=== PATIENT | male | born 1955 | race African-American/Black ===

== ENCOUNTER 2017-01-26 14:11 | Inpatient (IN) | payer MEDICAID, OTHER ==
[~2017-01-26] VITALS: Ht 167.6 cm; Wt 58.1 kg
[~2017-01-26 14:11] MED LIST: CARV6.2548 PO; LOSA100T14 PO
[2017-01-26] MEDS ORDERED: MORPHINE SULFATE 4 MG/ML CPJ (NOT FOR IM USE) IV PRN (15:00)
[2017-01-26] MEDS ORDERED: LABETALOL HCL 20MG/4ML CARPUJECT IV PRN ×3 (15:00→20:30)
[2017-01-26] MEDS: ONDANSETRON HCL 4MG/2ML VIAL IV PRN (15:04)
[2017-01-26] MEDS ORDERED: LABETALOL 5MG/ML SYR 20 MG/4 ML SYRINGE IV NR ×2 (15:15→20:41)
[2017-01-26 15:53] LABS: BASOPHILS % 0.5 % (0.0-2.0); EOSINOPHILS % 0.4 % (0.0-5.0); HEMOGLOBIN. 11.4 g/dL (14.0-18.0); LYMPHOCYTES % 7.5 % (20.0-50.0); MEAN CORPUSCULAR HGB CONC 33.6 g/dL (31.0-37.0); MEAN CORPUSCULAR VOLUME 83.2 fL (80.0-94.0); MEAN PLATELET VOLUME 9.4 fl (7.4-10.4); MONOCYTES % 7.1 % (2.0-8.0); NEUTROPHILS % 84.5 % (40.0-76.0); PLATELET 88 x1000/uL (130-400); RED BLOOD CELL COUNT 4.09 mill/uL (4.7-6.1); RED CELL DISTRIBUTION WIDTH 16.3 % (11.6-14.6)
[2017-01-26 15:58] LABS: INR 1.1; PROTHROMBIN TIME 11.7 sec
[2017-01-26 16:07] LABS: CALCIUM 7.9 mg/dL (8.5-10.1); TROPONIN I 0.06 ng/mL (0.00-0.04)
[2017-01-26] MEDS ORDERED: CLONIDINE 0.2MG TABLET PO ONE (18:30)
[2017-01-26] MEDS ORDERED: LABETALOL 5MG/ML SYR 20 MG/4 ML SYRINGE IV PRN (18:38)
[2017-01-26] MEDS: BENAZEPRIL 20MG TABLET PO SCH (19:18)
[2017-01-26] MEDS ORDERED: ONDANSETRON HCL 4MG/2ML VIAL IV ONE (21:30)
[2017-01-26] MEDS ORDERED: IPRATROPIUM/ALBUTEROL 0.5-3(2.5)MG/3ML NEB INH PRN (22:15)
[2017-01-26] MEDS ORDERED: MAGNESIUM/ALUMINUM HYDROXIDE/SIMETHICONE 30ML UDC PO PRN (22:15)
[2017-01-26] MEDS ORDERED: ACETAMINOPHEN 325MG TABLET PO PRN (22:15)
[2017-01-26] MEDS ORDERED: HYDROCODONE/ACETAMINOPHEN 5/325MG TABLET PO PRN (22:15)
[2017-01-26] MEDS ORDERED: ONDANSETRON HCL 4MG/2ML VIAL IV PRN (22:15)
[2017-01-26] MEDS ORDERED: NIFEDIPINE XL 60MG TAB PO NR (22:45)
[2017-01-26 23:18] LABS: CALCIUM 7.8 mg/dL (8.5-10.1); MAGNESIUM 2.2 mg/dL (1.8-2.4)
[2017-01-27] VITALS (8 sets, daily range): BP systolic 138–218; BP diastolic 71–103
[2017-01-27] MEDS: HYDRALAZINE 20MG/ML VIAL IV PRN ×2 (00:09→11:10)
[2017-01-27] MEDS ORDERED: BENA40TA3 PO (01:25)
[2017-01-27] MEDS ORDERED: CLON1PAT10 TD (01:25)
[2017-01-27] MEDS ORDERED: METO50TA5 PO (01:25)
[2017-01-27] MEDS: CLONIDINE 0.1MG TABLET PO PRN ×3 (01:59→12:33)
[2017-01-27 07:43] LABS: CREATINE KINASE MB FRACTION 2.8 ng/mL (0.5-3.6); TROPONIN I 0.08 ng/mL (0.00-0.04)
[2017-01-27 07:50] LABS: THYROID STIMULATING HORMONE 2.1 uIU/mL (0.36-3.74)
[2017-01-27] MEDS: BENAZEPRIL 20MG TABLET PO SCH (08:33)
[2017-01-27] MEDS: NIFEDIPINE XL 60MG TAB PO SCH ×4 (08:33→12:33)
[2017-01-27] MEDS ORDERED: METOPROLOL TARTRATE 50MG TABLET PO SCH (09:00)
[2017-01-27] MEDS ORDERED: CLONIDINE HCL 0.2MG/24HR PATCH TD SCH (09:00)
[2017-01-27] MEDS: ONDANSETRON HCL 4MG/2ML VIAL IV PRN (11:56)
[2017-01-27] MEDS: HYDRALAZINE HCL 100MG TABLET PO SCH ×2 (15:15→15:43)
[2017-01-27] MEDS: AZITHROMYCIN 500 MG in DEXT 5% WATER 250 ML IV SCH (15:44)
[2017-01-27] MEDS ORDERED: AZITHROMYCIN 500 MG in DEXT 5% WATER 250 ML IV SCH (16:00)
[2017-01-27 16:09] LABS: CREATINE KINASE MB FRACTION 2.4 ng/mL (0.5-3.6); TROPONIN I 0.07 ng/mL (0.00-0.04)
[2017-01-27 16:38] LABS: BASOPHILS % 0.4 % (0.0-2.0); EOSINOPHILS % 1.4 % (0.0-5.0); HEMATOCRIT. 35.6 % (42.0-52.0); HEMOGLOBIN. 11.7 g/dL (14.0-18.0); LYMPHOCYTES % 9.4 % (20.0-50.0); MEAN CORPUSCULAR HEMOGLOBIN 27.5 pg (28.0-32.0); MEAN CORPUSCULAR HGB CONC 32.8 g/dL (31.0-37.0); MEAN CORPUSCULAR VOLUME 83.8 fL (80.0-94.0); MEAN PLATELET VOLUME 9.6 fl (7.4-10.4); MONOCYTES % 9.4 % (2.0-8.0); NEUTROPHILS % 79.4 % (40.0-76.0); PLATELET 102 x1000/uL (130-400); RED BLOOD CELL COUNT 4.25 mill/uL (4.7-6.1); RED CELL DISTRIBUTION WIDTH 17.1 % (11.6-14.6); WHITE BLOOD COUNT 7.3 x1000/uL (4.5-11.0)
[2017-01-27] MEDS: CEFTRIAXONE 1 G PREMIX 50 ML IV SCH (17:14)
[2017-01-27 17:39] LABS: CALCIUM 7.4 mg/dL (8.5-10.1)
[2017-01-27] MEDS ORDERED: HYDRALAZINE HCL 100MG TABLET PO SCH (22:00)
[2017-01-28] VITALS (8 sets, daily range): BP systolic 116–178; BP diastolic 63–90
[2017-01-28] MEDS: METOPROLOL TARTRATE 50MG TABLET PO SCH ×3 (00:50→20:49)
[2017-01-28] MEDS: NIFEDIPINE XL 60MG TAB PO SCH ×3 (00:50→20:49)
[2017-01-28] MEDS: HYDRALAZINE HCL 100MG TABLET PO SCH ×4 (00:51→20:49)
[2017-01-28 05:38] LABS: BASOPHILS % 0.7 % (0.0-2.0); EOSINOPHILS % 2.1 % (0.0-5.0); HEMATOCRIT. 34.6 % (42.0-52.0); HEMOGLOBIN. 11.4 g/dL (14.0-18.0); LYMPHOCYTES % 12.8 % (20.0-50.0); MEAN CORPUSCULAR HEMOGLOBIN 27.8 pg (28.0-32.0); MEAN CORPUSCULAR VOLUME 84.4 fL (80.0-94.0); MEAN PLATELET VOLUME 9.7 fl (7.4-10.4); MONOCYTES % 10.4 % (2.0-8.0); PLATELET 72 x1000/uL (130-400); RED CELL DISTRIBUTION WIDTH 17.1 % (11.6-14.6); WHITE BLOOD COUNT 5.6 x1000/uL (4.5-11.0)
[2017-01-28] MEDS: CLONIDINE 0.1MG TABLET PO PRN (06:24)
[2017-01-28] MEDS: BENAZEPRIL 20MG TABLET PO SCH (08:38)
[2017-01-28] MEDS: AZITHROMYCIN 500 MG in DEXT 5% WATER 250 ML IV SCH (15:33)
[2017-01-28] MEDS: CEFTRIAXONE 1 G PREMIX 50 ML IV SCH (17:23)
[2017-01-29] VITALS: BP 130/71
[2017-01-29 04:00] VITALS: BP_SYST 150; BP_DIAS 8; BP_DIAS 80
[2017-01-29] MEDS: DOCUSATE SODIUM 100MG CAPSULE PO PRN ×2 (05:21→21:30)
[2017-01-29] MEDS: HYDRALAZINE HCL 100MG TABLET PO SCH ×3 (05:22→21:31)
[2017-01-29 06:21] LABS: BASOPHILS % 0.9 % (0.0-2.0); EOSINOPHILS % 3.9 % (0.0-5.0); HEMOGLOBIN. 11.5 g/dL (14.0-18.0); LYMPHOCYTES % 17.4 % (20.0-50.0); MEAN CORPUSCULAR HEMOGLOBIN 27.9 pg (28.0-32.0); MEAN CORPUSCULAR HGB CONC 32.8 g/dL (31.0-37.0); MEAN CORPUSCULAR VOLUME 85.1 fL (80.0-94.0); MEAN PLATELET VOLUME 10.1 fl (7.4-10.4); NEUTROPHILS % 65.8 % (40.0-76.0); PLATELET 109 x1000/uL (130-400); RED BLOOD CELL COUNT 4.11 mill/uL (4.7-6.1); RED CELL DISTRIBUTION WIDTH 17.9 % (11.6-14.6); WHITE BLOOD COUNT 6.3 x1000/uL (4.5-11.0)
[2017-01-29 06:57] LABS: CALCIUM 8.4 mg/dL (8.5-10.1)
[2017-01-29 08:00] VITALS: BP 143/79
[2017-01-29] MEDS: NIFEDIPINE XL 60MG TAB PO SCH ×2 (08:30→21:31)
[2017-01-29] MEDS: METOPROLOL TARTRATE 50MG TABLET PO SCH ×2 (08:30→21:30)
[2017-01-29 12:00] VITALS: BP 152/80
[2017-01-29 16:00] VITALS: BP 136/65
[2017-01-29] MEDS ORDERED: AZITHROMYCIN 500 MG TABLET PO SCH (16:00)
[2017-01-29] MEDS ORDERED: HEPARIN SODIUM 1,000 UNIT/1ML VIAL IV NR (16:00)
[2017-01-29] MEDS: CEFTRIAXONE 1 G PREMIX 50 ML IV SCH (17:37)
[2017-01-29 20:00] VITALS: BP 149/70
[2017-01-30] VITALS: BP 136/67
[2017-01-30 04:00] VITALS: BP_SYST 167; BP_SYST 98; BP_DIAS 61; BP_DIAS 85
[2017-01-30] MEDS: HYDRALAZINE HCL 100MG TABLET PO SCH ×2 (05:54→08:20)
[2017-01-30 07:22] LABS: CALCIUM 8.4 mg/dL (8.5-10.1)
[2017-01-30 07:26] LABS: EOSINOPHILS % 2.8 % (0.0-5.0); HEMATOCRIT. 37.9 % (42.0-52.0); HEMOGLOBIN. 12.2 g/dL (14.0-18.0); LYMPHOCYTES % 16.6 % (20.0-50.0); MEAN CORPUSCULAR HEMOGLOBIN 27.8 pg (28.0-32.0); MEAN CORPUSCULAR HGB CONC 32.3 g/dL (31.0-37.0); MEAN CORPUSCULAR VOLUME 86.3 fL (80.0-94.0); MEAN PLATELET VOLUME 9.6 fl (7.4-10.4); MONOCYTES % 12.5 % (2.0-8.0); NEUTROPHILS % 67.1 % (40.0-76.0); PLATELET 118 x1000/uL (130-400); RED BLOOD CELL COUNT 4.39 mill/uL (4.7-6.1); RED CELL DISTRIBUTION WIDTH 17.8 % (11.6-14.6); WHITE BLOOD COUNT 6.1 x1000/uL (4.5-11.0)
[2017-01-30 08:00] VITALS: BP 155/76
[2017-01-30] MEDS: DOCUSATE SODIUM 100MG CAPSULE PO PRN (08:20)
[2017-01-30] MEDS: NIFEDIPINE XL 60MG TAB PO SCH (08:21)
[2017-01-30] MEDS: METOPROLOL TARTRATE 50MG TABLET PO SCH (08:21)
[2017-01-30 11:30] VITALS: BP 149/75
[2017-01-30 11:34] VITALS: BP 149/75
== END 2017-01-30 12:42 | disposition home or self-care (01) | DRG 194 ==
LOC: ER 14:33 → 7WST 21:37
PROVIDERS: ADMIT Internal Medicine; ATTEND Internal Medicine
PROC: 5A1D60Z (ICD-10-PCS; principal; 2017-01-27)
DX: I13.2 Hypertensive heart and chronic kidney disease with heart failure and with stage 5 chronic kidney disease, or end stage renal disease (principal); N18.6 End stage renal disease; D69.6 Thrombocytopenia, unspecified; D63.1 Anemia in chronic kidney disease; I50.30 Unspecified diastolic (congestive) heart failure; E87.6 Hypokalemia; R91.8 Other nonspecific abnormal finding of lung field; Z82.49 Family history of ischemic heart disease and other diseases of the circulatory system; Z99.2 Dependence on renal dialysis; Z87.01 Personal history of pneumonia (recurrent)
CPT/HCPCS: 36415; 70450; 70551; 71010; 80048; 80061; 82550; 82553; 82962; 83036; 83735; 83880; 84443; 84484; 85025; 85610; 93005; 93306; 96374; 96375; 99291; J0360; J0456; J0696; J1644; J2270; J2405; J3490; J7030; J7050; J7060

== ENCOUNTER 2017-05-23 09:33 | Inpatient (IN) | payer MEDICAID ==
[~2017-05-23] VITALS: Ht 172.7 cm; Wt 68.0 kg
[~2017-05-23 09:33] MED LIST changes: +BENA40TA3 PO; -CARV6.2548 PO; +CLON1PAT10 TD; -LOSA100T14 PO
[2017-05-23] MEDS ORDERED: NITROGLYCERIN OINT 1GM/INCH UDPKT TD STA (10:05)
[2017-05-23] MEDS ORDERED: ASPIRIN 325MG TABLET PO ONE (10:15)
[2017-05-23 10:49] LABS: BASOPHILS % 0.5 % (0.0-2.0); HEMATOCRIT. 33.2 % (42.0-52.0); HEMOGLOBIN. 10.9 g/dL (14.0-18.0); LYMPHOCYTES % 7.5 % (20.0-50.0); MEAN CORPUSCULAR HEMOGLOBIN 26.4 pg (28.0-32.0); MEAN CORPUSCULAR VOLUME 80.4 fL (80.0-94.0); MEAN PLATELET VOLUME 8.5 fl (7.4-10.4); MONOCYTES % 4.9 % (2.0-8.0); NEUTROPHILS % 85.1 % (40.0-76.0); PLATELET 159 x1000/uL (130-400); RED BLOOD CELL COUNT 4.13 mill/uL (4.7-6.1); RED CELL DISTRIBUTION WIDTH 16.8 % (11.6-14.6)
[2017-05-23 10:56] LABS: INR 1.1; PROTHROMBIN TIME 11.1 sec (9.4-11.6)
[2017-05-23 10:59] LABS: CARBON DIOXIDE 26 mEq/L (21-32); CHLORIDE 100 mEq/L (98-107)
[2017-05-23 11:03] LABS: TROPONIN I 0.02 ng/mL (0.00-0.04)
[2017-05-23] MEDS ORDERED: LEVOFLOXACIN 500MG PREMIX 100 ML IV ONE (14:00)
[2017-05-23 17:15] VITALS: BP 177/81
[2017-05-23] MEDS ORDERED: ACETAMINOPHEN 325MG TABLET PO PRN (17:30)
[2017-05-23] MEDS ORDERED: DIPHENHYDRAMINE 50MG/ML VIAL IV PRN (17:30)
[2017-05-23] MEDS ORDERED: MAGNESIUM/ALUMINUM HYDROXIDE/SIMETHICONE 30ML UDC PO PRN (17:30)
[2017-05-23] MEDS ORDERED: IPRATROPIUM/ALBUTEROL 0.5-3(2.5)MG/3ML NEB INH PRN (17:30)
[2017-05-23] MEDS ORDERED: ONDANSETRON HCL 4MG/2ML VIAL IV PRN (17:30)
[2017-05-23] MEDS: CLONIDINE 0.1MG TABLET PO PRN (18:26)
[2017-05-23 20:00] VITALS: BP 177/75
[2017-05-23] MEDS: SODIUM CHLORIDE 0.9% INJ 3ML FLUSH IVF SCH (21:42)
[2017-05-23] MEDS: LABETALOL HCL 100MG TABLET PO SCH (21:42)
[2017-05-24] VITALS (7 sets, daily range): BP systolic 138–200; BP diastolic 58–83
[2017-05-24] MEDS: CLONIDINE 0.1MG TABLET PO PRN ×3 (00:06→13:28)
[2017-05-24] MEDS ORDERED: NIFE30TA94 PO (05:20)
[2017-05-24] MEDS ORDERED: LABE200T28 PO (05:20)
[2017-05-24] MEDS: SODIUM CHLORIDE 0.9% INJ 3ML FLUSH IVF SCH ×3 (05:59→21:21)
[2017-05-24] MEDS: LABETALOL HCL 100MG TABLET PO SCH (08:32)
[2017-05-24] MEDS ORDERED: MEDICATION NOT ON FORMULARY EA (Benazepril Hcl 20 MG) PO SCH (09:00)
[2017-05-24] MEDS: NIFEDIPINE XL 90MG TAB PO SCH (09:27)
[2017-05-24] MEDS: BENAZEPRIL 20MG TABLET PO SCH (12:39)
[2017-05-24] MEDS: LABETALOL HCL 200MG TABLET PO SCH (21:18)
[2017-05-24] MEDS ORDERED: MAGNESIUM HYDROXIDE 400MG/5ML 30ML UDC PO NR (21:30)
[2017-05-25] VITALS: BP 160/73
[2017-05-25 04:00] VITALS: BP 178/77
[2017-05-25 04:28] VITALS: BP 178/77
[2017-05-25] MEDS: CLONIDINE 0.1MG TABLET PO PRN (05:27)
[2017-05-25] MEDS: SODIUM CHLORIDE 0.9% INJ 3ML FLUSH IVF SCH (05:28)
[2017-05-25 05:49] LABS: BASOPHILS % 0.8 % (0.0-2.0); EOSINOPHILS % 2.8 % (0.0-5.0); HEMATOCRIT. 30.2 % (42.0-52.0); LYMPHOCYTES % 15.9 % (20.0-50.0); MEAN CORPUSCULAR HEMOGLOBIN 26.5 pg (28.0-32.0); MEAN CORPUSCULAR VOLUME 80.4 fL (80.0-94.0); MEAN PLATELET VOLUME 8.8 fl (7.4-10.4); MONOCYTES % 9.1 % (2.0-8.0); NEUTROPHILS % 71.4 % (40.0-76.0); PLATELET 142 x1000/uL (130-400); RED BLOOD CELL COUNT 3.76 mill/uL (4.7-6.1); RED CELL DISTRIBUTION WIDTH 16.2 % (11.6-14.6)
[2017-05-25] MEDS: NIFEDIPINE XL 90MG TAB PO SCH (06:37)
[2017-05-25] MEDS: LABETALOL HCL 200MG TABLET PO SCH (06:37)
[2017-05-25] MEDS: BENAZEPRIL 20MG TABLET PO SCH (06:37)
[2017-06-10] MEDS ORDERED: LEVO250T2 PO (17:06)
[2017-06-10] MEDS ORDERED: METR250T PO (17:07)
[2017-07-22] MEDS ORDERED: PRED1DRO OP (22:11)
[2017-07-22] MEDS ORDERED: ATRO10DR OP (22:13)
== END 2017-05-25 07:32 | disposition home or self-care (01) | DRG 194 ==
LOC: ER 10:06 → 8WST 12:22 → EDBEDREQTM 12:27 → EDBEDREQ 12:27 → ENRESERV 14:42
PROVIDERS: ADMIT Internal Medicine; ATTEND Internal Medicine
PROC: 5A1D00Z (ICD-10-PCS; principal; 2017-05-24)
DX: I13.2 Hypertensive heart and chronic kidney disease with heart failure and with stage 5 chronic kidney disease, or end stage renal disease (principal); J18.9 Pneumonia, unspecified organism; J81.1 Chronic pulmonary edema; N18.6 End stage renal disease; I50.31 Acute diastolic (congestive) heart failure; D64.9 Anemia, unspecified; Z99.2 Dependence on renal dialysis; Z87.442 Personal history of urinary calculi; Z79.899 Other long term (current) drug therapy; Z87.01 Personal history of pneumonia (recurrent); Z90.5 Acquired absence of kidney
CPT/HCPCS: 36415; 71010; 80048; 80053; 83605; 83690; 84484; 85025; 85610; 87040; 93005; 93970; 96365; 96366; 99285; J1956; J7030

== ENCOUNTER 2017-05-28 03:06 | Inpatient (IN) | payer MEDICAID ==
[~2017-05-28] VITALS: Ht 167.6 cm; Wt 57.6 kg
[~2017-05-28 03:06] MED LIST changes: +LABE200T28 PO; +NIFE30TA94 PO
[2017-05-28] MEDS ORDERED: LABETALOL 5MG/ML SYR 20 MG/4 ML SYRINGE IV ONE (04:15)
[2017-05-28 04:30] LABS: BASOPHILS % 0.7 % (0.0-2.0); EOSINOPHILS % 2.3 % (0.0-5.0); HEMOGLOBIN. 10.1 g/dL (14.0-18.0); LYMPHOCYTES % 7.8 % (20.0-50.0); MEAN CORPUSCULAR HEMOGLOBIN 26.3 pg (28.0-32.0); MEAN CORPUSCULAR VOLUME 80.7 fL (80.0-94.0); MEAN PLATELET VOLUME 8.3 fl (7.4-10.4); MONOCYTES % 4.9 % (2.0-8.0); NEUTROPHILS % 84.3 % (40.0-76.0); PLATELET 148 x1000/uL (130-400); RED BLOOD CELL COUNT 3.84 mill/uL (4.7-6.1); RED CELL DISTRIBUTION WIDTH 16.5 % (11.6-14.6)
[2017-05-28 04:38] LABS: CARBON DIOXIDE 30 mEq/L (21-32); CHLORIDE 99 mEq/L (98-107); TROPONIN I < 0.02 ng/mL (0.00-0.04)
[2017-05-28] MEDS ORDERED: ACETAMINOPHEN 325MG TABLET PO PRN (07:45)
[2017-05-28] MEDS ORDERED: ONDANSETRON HCL 4MG/2ML VIAL IV PRN (07:45)
[2017-05-28] MEDS ORDERED: LORAZEPAM 2MG/ML CPJ IV PRN (07:45)
[2017-05-28] MEDS ORDERED: IPRATROPIUM/ALBUTEROL 0.5-3(2.5)MG/3ML NEB INH PRN (07:45)
[2017-05-28] MEDS ORDERED: DIPHENHYDRAMINE 50MG/ML VIAL IV PRN (07:45)
[2017-05-28] MEDS ORDERED: NITROGLYCERIN 0.4MG TABLET SL SL PRN (07:45)
[2017-05-28] MEDS: CLONIDINE 0.1MG TABLET PO PRN ×2 (08:14→18:12)
[2017-05-28] MEDS: NIFEDIPINE XL 60MG TAB PO SCH (08:14)
[2017-05-28] MEDS: METOPROLOL TARTRATE 25MG TABLET PO SCH ×2 (09:13→21:29)
[2017-05-28] MEDS: NITROGLYCERIN 0.4MG/HR PATCH TOP SCH (09:32)
[2017-05-28 11:00] VITALS: BP 180/89
[2017-05-28 11:20] VITALS: BP 181/77
[2017-05-28] MEDS: ASPIRIN 325MG EC TABLET PO SCH (12:00)
[2017-05-28] MEDS: FOLIC ACID/VITAMIN B COMP W-C TABLET PO SCH (12:00)
[2017-05-28] MEDS: ENOXAPARIN 30MG/0.3ML SYR SUBCUT SCH (12:00)
[2017-05-28] MEDS: FAMOTIDINE 20MG/2ML VIAL IV SCH (12:00)
[2017-05-28] MEDS: SEVELAMER CARBONATE 800 MG TABLET PO SCH ×2 (12:39→18:13)
[2017-05-28] MEDS: HYDRALAZINE HCL 50MG TABLET PO SCH ×2 (14:00→21:29)
[2017-05-28 15:21] LABS: TROPONIN I 0.02 ng/mL (0.00-0.04)
[2017-05-28 16:00] VITALS: BP 172/72
[2017-05-28 18:12] VITALS: BP 171/72
[2017-05-28 20:00] VITALS: BP 177/81
[2017-05-28 23:26] LABS: CREATINE KINASE 185 IU/L (39-308); TROPONIN I < 0.02 ng/mL (0.00-0.04)
[2017-05-29] VITALS (8 sets, daily range): BP systolic 158–197; BP diastolic 62–90
[2017-05-29] MEDS: CLONIDINE 0.1MG TABLET PO PRN ×3 (00:50→18:16)
[2017-05-29] MEDS: ZOLPIDEM TARTRATE 5MG TABLET PO PRN (00:53)
[2017-05-29] MEDS: HYDRALAZINE HCL 50MG TABLET PO SCH ×3 (06:36→20:38)
[2017-05-29] MEDS: GUAIFENESIN 200MG/10ML SUGAR FREE UDC PO PRN ×3 (06:39→20:40)
[2017-05-29] MEDS: DOCUSATE SODIUM 100MG CAPSULE PO PRN ×3 (06:41→20:37)
[2017-05-29] MEDS: METOPROLOL TARTRATE 25MG TABLET PO SCH ×3 (08:14→20:34)
[2017-05-29] MEDS: NIFEDIPINE XL 60MG TAB PO SCH (08:14)
[2017-05-29] MEDS: FOLIC ACID/VITAMIN B COMP W-C TABLET PO SCH (08:42)
[2017-05-29] MEDS: ASPIRIN 325MG EC TABLET PO SCH (08:42)
[2017-05-29] MEDS: FAMOTIDINE 20MG/2ML VIAL IV SCH ×2 (08:42→08:49)
[2017-05-29] MEDS: SEVELAMER CARBONATE 800 MG TABLET PO SCH ×3 (08:46→18:16)
[2017-05-29] MEDS: NITROGLYCERIN 0.4MG/HR PATCH TOP SCH (09:00)
[2017-05-29] MEDS: ENOXAPARIN 30MG/0.3ML SYR SUBCUT SCH (12:00)
[2017-05-29] MEDS: CLONIDINE 0.3MG TABLET PO SCH ×2 (13:07→20:37)
[2017-05-29] MEDS ORDERED: IOHEXOL-300 100 ML BOTTLE ONE (14:49)
[2017-05-29] MEDS ORDERED: SODIUM CHLORIDE 0.9% 10ML VIAL ONE (14:49)
[2017-05-30] VITALS (11 sets, daily range): BP systolic 118–218; BP diastolic 54–102
[2017-05-30] MEDS: ZOLPIDEM TARTRATE 5MG TABLET PO PRN (01:33)
[2017-05-30] MEDS: CLONIDINE 0.1MG TABLET PO PRN ×2 (01:33→09:09)
[2017-05-30] MEDS: HYDRALAZINE HCL 50MG TABLET PO SCH ×3 (03:53→22:58)
[2017-05-30] MEDS: CLONIDINE 0.3MG TABLET PO SCH ×3 (03:53→22:59)
[2017-05-30] MEDS: SEVELAMER CARBONATE 800 MG TABLET PO SCH ×3 (09:05→18:34)
[2017-05-30] MEDS: DOCUSATE SODIUM 100MG CAPSULE PO PRN ×2 (09:07→20:18)
[2017-05-30] MEDS: FOLIC ACID/VITAMIN B COMP W-C TABLET PO SCH (09:09)
[2017-05-30] MEDS: MINOXIDIL 10MG TABLET PO SCH ×3 (09:12→20:17)
[2017-05-30] MEDS: ASPIRIN 325MG EC TABLET PO SCH (09:13)
[2017-05-30] MEDS: FAMOTIDINE 20MG/2ML VIAL IV SCH (09:13)
[2017-05-30] MEDS: METOPROLOL TARTRATE 50MG TABLET PO SCH ×2 (09:16→20:08)
[2017-05-30] MEDS: NIFEDIPINE XL 60MG TAB PO SCH (09:29)
[2017-05-30] MEDS: ENOXAPARIN 30MG/0.3ML SYR SUBCUT SCH (12:48)
[2017-05-30] MEDS: NITROGLYCERIN 0.4MG/HR PATCH TOP SCH (14:26)
[2017-05-30] MEDS: TRAMADOL 50MG TABLET PO PRN (20:18)
[2017-05-31 04:00] VITALS: BP 124/55
[2017-05-31] MEDS: CLONIDINE 0.3MG TABLET PO SCH ×2 (05:26→12:56)
[2017-05-31] MEDS: HYDRALAZINE HCL 50MG TABLET PO SCH ×2 (05:27→12:56)
[2017-05-31 06:20] LABS: EOSINOPHILS % 2.9 % (0.0-5.0); HEMATOCRIT. 27.8 % (42.0-52.0); HEMOGLOBIN. 9.1 g/dL (14.0-18.0); LYMPHOCYTES % 14.1 % (20.0-50.0); MEAN CORPUSCULAR HEMOGLOBIN 26.2 pg (28.0-32.0); MEAN CORPUSCULAR VOLUME 79.9 fL (80.0-94.0); MEAN PLATELET VOLUME 8.8 fl (7.4-10.4); MONOCYTES % 8.3 % (2.0-8.0); NEUTROPHILS % 73.7 % (40.0-76.0); PLATELET 150 x1000/uL (130-400); RED BLOOD CELL COUNT 3.48 mill/uL (4.7-6.1); RED CELL DISTRIBUTION WIDTH 16.5 % (11.6-14.6)
[2017-05-31 08:00] VITALS: BP 106/42
[2017-05-31] MEDS: MINOXIDIL 10MG TABLET PO SCH (08:30)
[2017-05-31] MEDS: NIFEDIPINE XL 60MG TAB PO SCH (08:30)
[2017-05-31] MEDS: METOPROLOL TARTRATE 50MG TABLET PO SCH (08:30)
[2017-05-31] MEDS: NITROGLYCERIN 0.4MG/HR PATCH TOP SCH (09:00)
[2017-05-31] MEDS: FOLIC ACID/VITAMIN B COMP W-C TABLET PO SCH (09:13)
[2017-05-31] MEDS: FAMOTIDINE 20MG/2ML VIAL IV SCH (09:13)
[2017-05-31] MEDS: SEVELAMER CARBONATE 800 MG TABLET PO SCH ×2 (09:13→13:17)
[2017-05-31] MEDS: ASPIRIN 325MG EC TABLET PO SCH (09:14)
[2017-05-31] MEDS: DOCUSATE SODIUM 100MG CAPSULE PO PRN (09:14)
[2017-05-31] MEDS: TRAMADOL 50MG TABLET PO PRN (09:14)
[2017-05-31 12:00] VITALS: BP 93/50
[2017-05-31 12:57] VITALS: BP 93/50
[2017-05-31] MEDS: ENOXAPARIN 30MG/0.3ML SYR SUBCUT SCH (13:17)
[2017-05-31 14:15] LABS: QFT MITOGEN VALUE 1.72 IU/mL (.); QFT TB AG MINUS NIL VALUE 5.65 IU/mL (.); QFT TB AG VALUE 5.82 IU/mL (.); QFT TB GOLD Positive (Negative)
[2017-06-01 17:12] LABS: HISTOPLASMA ABS QT DID Negative (Neg:<1:1)
[2017-06-04 15:09] LABS: ANGIOTENSION CONVERTING ENZYME < 15 U/L (14-82)
[2017-06-10] MEDS ORDERED: LEVO250T2 PO (17:06)
[2017-06-10] MEDS ORDERED: METR250T PO (17:07)
[2017-07-22] MEDS ORDERED: PRED1DRO OP (22:11)
[2017-07-22] MEDS ORDERED: ATRO10DR OP (22:13)
== END 2017-05-31 14:36 | disposition home or self-care (01) | DRG 194 ==
LOC: ER 03:28 → EDBEDREQ 06:01 → 7WST 06:06 → ENRESERV 10:20
PROVIDERS: ADMIT Internal Medicine; ATTEND Internal Medicine
DX: I13.2 Hypertensive heart and chronic kidney disease with heart failure and with stage 5 chronic kidney disease, or end stage renal disease (principal); N18.6 End stage renal disease; N13.9 Obstructive and reflux uropathy, unspecified; E87.1 Hypo-osmolality and hyponatremia; R91.1 Solitary pulmonary nodule; R59.0 Localized enlarged lymph nodes; E83.52 Hypercalcemia; I50.33 Acute on chronic diastolic (congestive) heart failure; D86.9 Sarcoidosis, unspecified; D63.8 Anemia in other chronic diseases classified elsewhere; J44.9 Chronic obstructive pulmonary disease, unspecified; Z87.442 Personal history of urinary calculi; Z91.14 Patient's other noncompliance with medication regimen; Z99.2 Dependence on renal dialysis
CPT/HCPCS: 36415; 71010; 71270; 80048; 80051; 80061; 82164; 82550; 83036; 83880; 84484; 85025; 86480; 86635; 86698; 93005; 93970; 96374; 99291; A4216; J1650; J3490; J7030; Q9967

== ENCOUNTER 2017-06-06 23:33 | Inpatient (IN) | payer MEDICAID ==
[~2017-06-06] VITALS: Ht 170.2 cm; Wt 57.2 kg
[2017-06-06] MEDS ORDERED: MORPHINE SULFATE 4 MG/ML CPJ (NOT FOR IM USE) IV STA (23:51)
[2017-06-06] MEDS ORDERED: ONDANSETRON HCL 4MG/2ML VIAL IV STA (23:51)
[2017-06-07] VITALS (7 sets, daily range): BP systolic 163–219; BP diastolic 70–95
[2017-06-07] MEDS ORDERED: MAGNESIUM 2 G PREMIX 50 ML IV ONE
[2017-06-07] MEDS ORDERED: ASPIRIN 81MG TABLET PO ONE
[2017-06-07] MEDS ORDERED: NITROGLYCERIN OINT 1GM/INCH UDPKT TD ONE
[2017-06-07] MEDS ORDERED: LABETALOL HCL 20MG/4ML CARPUJECT IV ONE
[2017-06-07 00:30] LABS: BASOPHILS % 0.7 % (0.0-2.0); EOSINOPHILS % 1.9 % (0.0-5.0); HEMATOCRIT. 31.5 % (42.0-52.0); HEMOGLOBIN. 10.4 g/dL (14.0-18.0); LYMPHOCYTES % 9.5 % (20.0-50.0); MEAN CORPUSCULAR HEMOGLOBIN 26.9 pg (28.0-32.0); MEAN CORPUSCULAR VOLUME 81.5 fL (80.0-94.0); MEAN PLATELET VOLUME 8.2 fl (7.4-10.4); MONOCYTES % 7.4 % (2.0-8.0); NEUTROPHILS % 80.5 % (40.0-76.0); PLATELET 168 x1000/uL (130-400); RED BLOOD CELL COUNT 3.87 mill/uL (4.7-6.1); RED CELL DISTRIBUTION WIDTH 16.8 % (11.6-14.6)
[2017-06-07] MEDS ORDERED: LABETALOL 5MG/ML SYR 20 MG/4 ML SYRINGE IV NR ×2 (00:30→01:15)
[2017-06-07 00:45] LABS: CARBON DIOXIDE 28 mEq/L (21-32); CHLORIDE 99 mEq/L (98-107); D-DIMER 0.68 mg/L FEU (<0.50); ETHANOL BLOOD < 10 mg/dL; INR 1.1; PARTIAL THROMBOPLASTIN TIME 31.5 sec (23.4-31.0); PROTHROMBIN TIME 11.6 sec (9.4-11.6); TROPONIN I 0.06 ng/mL (0.00-0.04)
[2017-06-07] MEDS ORDERED: LEVOFLOXACIN 750MG PREMIX 150 ML IV ONE (00:45)
[2017-06-07] MEDS ORDERED: SODIUM CHLORIDE 0.9% 1000ML BAG (SEPSIS BOLUS) IV ONE (00:45)
[2017-06-07 00:49] LABS: BG BASE EXCESS -1.6 mmol/L (-2.0-2.0); BG CARBOXYHEMOGLOBIN 0.7 % (0.5-1.5); BG DEOXYHEMOGLOBIN 4.3 % (0.0-5.0); BG FRACTION INSPIRED OXYGEN 28; BG HCO3 ACT 22.8 mmol/L (22.0-26.0); BG METHEMOGLOBIN 0.1 % (0.0-1.5); BG OXYGEN SATURATION 95.7 % (92.0-98.5); BG OXYHEMOGLOBIN 94.9 % (94.0-97.0); BG PCO2 37.6 mmHg (35.0-45.0); BG PH 7.401 (7.350-7.450); BG PO2 79.3 mmHg (75.0-100.0); BG SAMPLE SITE RIGHT RADIAL; BG VENT MODE NASAL CANNULA
[2017-06-07] MEDS ORDERED: ONDANSETRON HCL 4MG/2ML VIAL IV NR (01:15)
[2017-06-07] MEDS ORDERED: MORPHINE SULFATE 4 MG/ML CPJ (NOT FOR IM USE) IV NR (01:15)
[2017-06-07] MEDS ORDERED: NITROGLYCERIN OINT 1GM/INCH UDPKT TD NR (01:15)
[2017-06-07] MEDS ORDERED: MAGNESIUM 2 G PREMIX 50 ML IV NR (01:15)
[2017-06-07] MEDS ORDERED: ASPIRIN 81MG TABLET PO NR (01:15)
[2017-06-07] MEDS: CLONIDINE 0.1MG TABLET PO PRN (07:08)
[2017-06-07] MEDS: LABETALOL HCL 100MG TABLET PO SCH ×2 (08:04→22:20)
[2017-06-07] MEDS: BENAZEPRIL 20MG TABLET PO SCH (08:05)
[2017-06-07] MEDS ORDERED: AMLODIPINE 10MG TABLET PO SCH (09:00)
[2017-06-07] MEDS ORDERED: CLONIDINE HCL 0.1MG/24HR PATCH TD SCH (09:00)
[2017-06-07 11:15] LABS: HEMATOCRIT 29.4 % (42.0-52.0); HEMOGLOBIN 9.7 g/dL (14.0-18.0); MEAN CORPUSCULAR HEMOGLOBIN 26.9 pg (28.0-32.0); MEAN CORPUSCULAR VOLUME 81.6 fL (80.0-94.0); PLATELET 159 x1000/uL (130-400); RED BLOOD CELL COUNT 3.61 mill/uL (4.7-6.1); RED CELL DISTRIBUTION WIDTH 16.8 % (11.6-14.6)
[2017-06-07] MEDS ORDERED: ACETAMINOPHEN 650MG SUPP PR PRN (11:15)
[2017-06-07] MEDS ORDERED: DOCUSATE SODIUM 100MG CAPSULE PO PRN (11:15)
[2017-06-07] MEDS ORDERED: ACETAMINOPHEN 325MG TABLET PO PRN (11:15)
[2017-06-07] MEDS ORDERED: LEVOFLOXACIN 500MG PREMIX 100 ML IV SCH (11:15)
[2017-06-07] MEDS ORDERED: GUAIFENESIN 200MG/10ML SUGAR FREE UDC PO PRN (11:15)
[2017-06-07] MEDS ORDERED: CLONIDINE 0.1MG TABLET PO PRN (11:15)
[2017-06-07] MEDS ORDERED: NA PHOS,M-B/NA PHOS,DI-BA ENEMA 118ML PR PRN (11:15)
[2017-06-07] MEDS ORDERED: MAGNESIUM/ALUMINUM HYDROXIDE/SIMETHICONE 30ML UDC PO PRN (11:15)
[2017-06-07] MEDS ORDERED: IPRATROPIUM/ALBUTEROL 0.5-3(2.5)MG/3ML NEB INH PRN (11:15)
[2017-06-07] MEDS ORDERED: ACETAMINOPHEN 650MG/20.3ML UDC GT PRN (11:15)
[2017-06-07] MEDS ORDERED: DIPHENHYDRAMINE 50MG/ML VIAL IV PRN (11:15)
[2017-06-07] MEDS: ENOXAPARIN 30MG/0.3ML SYR SUBCUT SCH (12:22)
[2017-06-07] MEDS: HYDRALAZINE 20MG/ML VIAL IV PRN (12:22)
[2017-06-07] MEDS: SODIUM CHLORIDE 0.9% INJ 3ML FLUSH IVF SCH ×2 (12:23→22:19)
[2017-06-07] MEDS: NIFEDIPINE XL 90MG TAB PO SCH (12:50)
[2017-06-07 13:48] LABS: CARBON DIOXIDE 24 mEq/L (21-32); CHLORIDE 97 mEq/L (98-107)
[2017-06-07 13:49] LABS: TROPONIN I 0.06 ng/mL (0.00-0.04)
[2017-06-07] MEDS: ONDANSETRON HCL 4MG/2ML VIAL IV PRN (14:27)
[2017-06-07] MEDS: IPRATROPIUM/ALBUTEROL 0.5-3(2.5)MG/3ML NEB INH SCH ×2 (14:57→21:00)
[2017-06-07] MEDS ORDERED: VANCOMYCIN 1 G PREMIX 200 ML IV NR (19:00)
[2017-06-07] MEDS: CEFEPIME 1,000 MG in DEXTROSE 5% WATER 50 ML IV SCH (19:05)
[2017-06-07] MEDS: METRONIDAZOLE 500MG TABLET PO SCH (22:20)
[2017-06-08] VITALS (11 sets, daily range): BP systolic 160–206; BP diastolic 73–85
[2017-06-08] MEDS: CLONIDINE 0.1MG TABLET PO PRN (00:48)
[2017-06-08] MEDS: IPRATROPIUM/ALBUTEROL 0.5-3(2.5)MG/3ML NEB INH SCH ×4 (01:33→22:01)
[2017-06-08] MEDS: METRONIDAZOLE 500MG TABLET PO SCH ×2 (05:33→14:54)
[2017-06-08] MEDS: HYDRALAZINE 20MG/ML VIAL IV PRN ×2 (05:33→12:40)
[2017-06-08] MEDS: SODIUM CHLORIDE 0.9% INJ 3ML FLUSH IVF SCH ×2 (05:34→14:00)
[2017-06-08 07:37] LABS: CARBON DIOXIDE 25 mEq/L (21-32); CHLORIDE 98 mEq/L (98-107); HDL CHOLESTEROL 48 mg/dL (40-59); LDL CHOLESTEROL 60 mg/dL (5-100)
[2017-06-08 07:41] LABS: HEMATOCRIT. 28.7 % (42.0-52.0); HEMOGLOBIN. 9.5 g/dL (14.0-18.0); MEAN CORPUSCULAR HEMOGLOBIN 26.9 pg (28.0-32.0); MEAN CORPUSCULAR VOLUME 81.2 fL (80.0-94.0); MEAN PLATELET VOLUME 8.5 fl (7.4-10.4); PLATELET 179 x1000/uL (130-400); RED BLOOD CELL COUNT 3.54 mill/uL (4.7-6.1); RED CELL DISTRIBUTION WIDTH 16.9 % (11.6-14.6)
[2017-06-08] MEDS: HYDROCODONE/ACETAMINOPHEN 5/325MG TABLET PO PRN ×2 (08:19→14:54)
[2017-06-08] MEDS: LABETALOL HCL 100MG TABLET PO SCH (09:00)
[2017-06-08] MEDS: BENAZEPRIL 20MG TABLET PO SCH (09:00)
[2017-06-08] MEDS: ENOXAPARIN 30MG/0.3ML SYR SUBCUT SCH (12:40)
[2017-06-08] MEDS: ONDANSETRON HCL 4MG/2ML VIAL IV PRN (12:40)
[2017-06-08] MEDS: NIFEDIPINE XL 90MG TAB PO SCH (14:57)
[2017-06-08 16:19] LABS: PLATELET ESTIMATE NORMAL
[2017-06-08] MEDS: METOCLOPRAMIDE HCL 10MG/2ML VIAL IV SCH (16:30)
[2017-06-08] MEDS ORDERED: HEPARIN SODIUM 1,000 UNIT/1ML VIAL IV NR ×2 (19:00→19:30)
[2017-06-08] MEDS ORDERED: HEPARIN SODIUM 1,000 UNIT/1ML VIAL IV SCH (19:45)
[2017-06-08] MEDS ORDERED: MAGNESIUM CITRATE 300ML SOLUTION PO NR (21:00)
[2017-06-08] MEDS ORDERED: LACTULOSE 20G/30ML UDC PO NR (22:45)
[2017-06-09] VITALS: BP 146/64
[2017-06-09] MEDS: METOCLOPRAMIDE HCL 10MG/2ML VIAL IV SCH ×4 (00:22→21:16)
[2017-06-09] MEDS: SODIUM CHLORIDE 0.9% INJ 3ML FLUSH IVF SCH ×4 (00:23→21:16)
[2017-06-09] MEDS: CEFEPIME 1,000 MG in DEXTROSE 5% WATER 50 ML IV SCH ×2 (00:26→17:44)
[2017-06-09] MEDS: LABETALOL HCL 100MG TABLET PO SCH ×3 (00:29→21:16)
[2017-06-09] MEDS: METRONIDAZOLE 500MG TABLET PO SCH ×4 (00:29→21:16)
[2017-06-09] MEDS: IPRATROPIUM/ALBUTEROL 0.5-3(2.5)MG/3ML NEB INH SCH ×4 (02:23→20:20)
[2017-06-09 04:15] VITALS: BP 135/60
[2017-06-09 08:00] VITALS: BP 126/72
[2017-06-09] MEDS: BENAZEPRIL 20MG TABLET PO SCH (08:52)
[2017-06-09] MEDS: NIFEDIPINE XL 90MG TAB PO SCH (08:53)
[2017-06-09] MEDS: ENOXAPARIN 30MG/0.3ML SYR SUBCUT SCH (10:55)
[2017-06-09] MEDS ORDERED: LEVOFLOXACIN 250MG PREMIX 50 ML IV SCH (11:00)
[2017-06-09 12:00] VITALS: BP 141/61
[2017-06-09] MEDS ORDERED: VANCOMYCIN 750 MG PREMIX 150 ML IV NR (12:00)
[2017-06-09 16:00] VITALS: BP 135/70
[2017-06-09 20:00] VITALS: BP 123/53
[2017-06-10] VITALS: BP 142/60
[2017-06-10] MEDS: IPRATROPIUM/ALBUTEROL 0.5-3(2.5)MG/3ML NEB INH SCH ×4 (01:55→20:25)
[2017-06-10 04:00] VITALS: BP 158/59
[2017-06-10] MEDS: SODIUM CHLORIDE 0.9% INJ 3ML FLUSH IVF SCH ×3 (05:17→21:04)
[2017-06-10] MEDS: METOCLOPRAMIDE HCL 10MG/2ML VIAL IV SCH ×3 (05:17→21:03)
[2017-06-10] MEDS: METRONIDAZOLE 500MG TABLET PO SCH ×3 (05:17→21:03)
[2017-06-10] MEDS: NIFEDIPINE XL 90MG TAB PO SCH (09:00)
[2017-06-10] MEDS: BENAZEPRIL 20MG TABLET PO SCH (09:00)
[2017-06-10] MEDS: LABETALOL HCL 100MG TABLET PO SCH ×2 (09:17→20:12)
[2017-06-10] MEDS: ENOXAPARIN 30MG/0.3ML SYR SUBCUT SCH (10:35)
[2017-06-10] MEDS: CLONIDINE 0.1MG TABLET PO PRN ×2 (14:20→21:04)
[2017-06-10 16:00] VITALS: BP 207/93
[2017-06-10] MEDS: HYDRALAZINE 20MG/ML VIAL IV PRN (16:33)
[2017-06-10] MEDS ORDERED: LEVO250T2 PO (17:06)
[2017-06-10] MEDS ORDERED: METR250T PO (17:07)
[2017-06-10] MEDS: CEFEPIME 1,000 MG in DEXTROSE 5% WATER 50 ML IV SCH (17:43)
[2017-06-10 17:54] VITALS: BP_SYST 161; BP_SYST 181; BP_DIAS 72
[2017-06-10 18:45] VITALS: BP 161/72
[2017-06-10 19:59] LABS: BASOPHILS % 0.5 % (0.0-2.0); EOSINOPHILS % 2.8 % (0.0-5.0); HEMATOCRIT. 29.9 % (42.0-52.0); HEMOGLOBIN. 9.8 g/dL (14.0-18.0); LYMPHOCYTES % 8.8 % (20.0-50.0); MEAN CORPUSCULAR HEMOGLOBIN 26.8 pg (28.0-32.0); MEAN CORPUSCULAR VOLUME 81.6 fL (80.0-94.0); MEAN PLATELET VOLUME 8.1 fl (7.4-10.4); MONOCYTES % 12.3 % (2.0-8.0); NEUTROPHILS % 75.6 % (40.0-76.0); PLATELET 126 x1000/uL (130-400); RED BLOOD CELL COUNT 3.67 mill/uL (4.7-6.1)
[2017-06-10 20:00] VITALS: BP 177/76
[2017-06-10 20:20] LABS: CARBON DIOXIDE 26 mEq/L (21-32); CHLORIDE 95 mEq/L (98-107)
[2017-06-11] VITALS: BP 164/72
[2017-06-11] MEDS: HYDRALAZINE 20MG/ML VIAL IV PRN ×2 (00:04→06:13)
[2017-06-11] MEDS: IPRATROPIUM/ALBUTEROL 0.5-3(2.5)MG/3ML NEB INH SCH ×2 (04:28→09:40)
[2017-06-11 04:30] VITALS: BP 187/74
[2017-06-11] MEDS: METRONIDAZOLE 500MG TABLET PO SCH (05:19)
[2017-06-11] MEDS: SODIUM CHLORIDE 0.9% INJ 3ML FLUSH IVF SCH (05:19)
[2017-06-11] MEDS: METOCLOPRAMIDE HCL 10MG/2ML VIAL IV SCH (05:19)
[2017-06-11] MEDS: CLONIDINE 0.1MG TABLET PO PRN (05:29)
[2017-06-11 06:30] VITALS: BP 161/65
[2017-06-11] MEDS: BENAZEPRIL 20MG TABLET PO SCH (08:29)
[2017-06-11] MEDS: LABETALOL HCL 100MG TABLET PO SCH (08:29)
[2017-06-11] MEDS: NIFEDIPINE XL 90MG TAB PO SCH (08:29)
[2017-06-11] MEDS ORDERED: LIDOCAINE HCL 1% 20ML VIAL (Pyxis) INJ ONE (09:07)
[2017-06-11] MEDS ORDERED: SODIUM BICARBONATE 4% (2.4MEQ) 5ML VIAL IV ONE (09:08)
[2017-07-22] MEDS ORDERED: PRED1DRO OP (22:11)
[2017-07-22] MEDS ORDERED: ATRO10DR OP (22:13)
== END 2017-06-11 12:00 | disposition home or self-care (01) | DRG 139 ==
LOC: ER 23:49 → 8WST 06-07 00:43
PROVIDERS: ADMIT Family Medicine; ATTEND Family Medicine
PROC: 5A1D60Z (ICD-10-PCS; 2017-06-07)
PROC: 05PYX3Z Removal of Infusion Device from Upper Vein, External Approach (ICD-10-PCS; principal; 2017-06-11)
DX: J18.9 Pneumonia, unspecified organism (principal); J96.00 Acute respiratory failure, unspecified whether with hypoxia or hypercapnia; I13.2 Hypertensive heart and chronic kidney disease with heart failure and with stage 5 chronic kidney disease, or end stage renal disease; E44.0 Moderate protein-calorie malnutrition; J90 Pleural effusion, not elsewhere classified; N18.6 End stage renal disease; I42.9 Cardiomyopathy, unspecified; I50.9 Heart failure, unspecified; Z99.2 Dependence on renal dialysis; I16.0 Hypertensive urgency; D64.9 Anemia, unspecified; J98.11 Atelectasis; Z87.442 Personal history of urinary calculi; Z90.5 Acquired absence of kidney; Z91.19 Patient's noncompliance with other medical treatment and regimen; Z88.8 Allergy status to other drugs, medicaments and biological substances; Z79.899 Other long term (current) drug therapy; R91.8 Other nonspecific abnormal finding of lung field; Z68.1 Body mass index [BMI] 19.9 or less, adult
CPT/HCPCS: 36415; 36589; 36600; 71010; 71250; 74000; 80053; 80061; 80202; 82375; 82805; 83605; 83690; 84484; 85025; 85027; 85379; 85610; 85730; 87040; 93005; 94640; 94664; 96365; 96366; 96375; 99285; G0482; J0360; J0692; J1644; J1650; J1956; J2270; J2405; J2765; J3370; J3475; J3490; J7030; J7040; J7060; J7620

== ENCOUNTER → 2017-06-22 | Outpatient (CLI) | payer MEDICAID ==
[~2017-06-22] MED LIST changes: +ATRO10DR OP; +LEVO250T2 PO; +METR250T PO; +PRED1DRO OP
== END | disposition home or self-care (01) ==
LOC: RAD 12:49
PROVIDERS: ATTEND Internal Medicine Nephrology
DX: J90 Pleural effusion, not elsewhere classified (principal); R76.11 Nonspecific reaction to tuberculin skin test without active tuberculosis
CPT/HCPCS: 71020

== ENCOUNTER 2017-08-16 20:06 | Inpatient (IN) | payer MEDICAID ==
[~2017-08-16] VITALS: Ht 171.4 cm; Wt 58.7 kg
[~2017-08-16 20:06] MED LIST changes: +MINO2.5T19 PO
[2017-08-16] MEDS ORDERED: CLONIDINE 0.1MG TABLET PO STA (20:34)
[2017-08-16] MEDS ORDERED: ASPIRIN 81MG TABLET PO ONE (20:45)
[2017-08-16] MEDS ORDERED: NITROGLYCERIN OINT 1GM/INCH UDPKT TD ONE (20:45)
[2017-08-16] MEDS ORDERED: LABETALOL HCL 20MG/4ML CARPUJECT IV ONE (20:45)
[2017-08-16] MEDS ORDERED: LABETALOL 5MG/ML SYR 20 MG/4 ML SYRINGE IV STA (21:14)
[2017-08-16] MEDS ORDERED: LEVOFLOXACIN 750MG PREMIX 150 ML IV ONE (21:30)
[2017-08-16 21:36] LABS: HEMATOCRIT. 32.2 % (42.0-52.0); HEMOGLOBIN. 10.5 g/dL (14.0-18.0); MEAN CORPUSCULAR HEMOGLOBIN 27.3 pg (28.0-32.0); MEAN CORPUSCULAR VOLUME 83.8 fL (80.0-94.0); MEAN PLATELET VOLUME 8.4 fl (7.4-10.4); PLATELET 167 x1000/uL (130-400); RED BLOOD CELL COUNT 3.84 mill/uL (4.7-6.1); RED CELL DISTRIBUTION WIDTH 17.7 % (11.6-14.6)
[2017-08-16 21:44] LABS: CHLORIDE 97 mEq/L (98-107)
[2017-08-16 21:47] LABS: CARBON DIOXIDE 29 mEq/L (21-32); ETHANOL BLOOD < 10 mg/dL
[2017-08-16 21:55] LABS: TROPONIN I < 0.02 ng/mL (0.00-0.04)
[2017-08-16] MEDS ORDERED: HYDRALAZINE 20MG/ML VIAL IV NR (22:00)
[2017-08-16 22:20] LABS: PLATELET ESTIMATE NORMAL
[2017-08-16] MEDS ORDERED: ACETAMINOPHEN 325MG TABLET PO PRN (22:45)
[2017-08-16] MEDS ORDERED: ONDANSETRON HCL 4MG/2ML VIAL IV PRN (22:45)
[2017-08-16] MEDS ORDERED: NA PHOS,M-B/NA PHOS,DI-BA ENEMA 118ML PR PRN (22:45)
[2017-08-16] MEDS ORDERED: DIPHENHYDRAMINE 50MG/ML VIAL IV PRN (22:45)
[2017-08-16] MEDS ORDERED: LORAZEPAM 0.5MG TABLET PO PRN (22:45)
[2017-08-16] MEDS ORDERED: NITROGLYCERIN 0.4MG TABLET SL SL PRN (22:45)
[2017-08-16] MEDS ORDERED: MAGNESIUM/ALUMINUM HYDROXIDE/SIMETHICONE 30ML UDC PO PRN (22:45)
[2017-08-16] MEDS ORDERED: CLONIDINE 0.1MG TABLET PO PRN (22:45)
[2017-08-16] MEDS ORDERED: IPRATROPIUM/ALBUTEROL 0.5-3(2.5)MG/3ML NEB INH PRN (22:45)
[2017-08-16] MEDS ORDERED: TRAMADOL 50MG TABLET PO PRN (22:45)
[2017-08-16] MEDS ORDERED: DOCUSATE SODIUM 100MG CAPSULE PO PRN (22:45)
[2017-08-16] MEDS ORDERED: GUAIFENESIN 200MG/10ML SUGAR FREE UDC PO PRN (22:45)
[2017-08-16] MEDS ORDERED: ZOLPIDEM TARTRATE 5MG TABLET PO PRN (22:45)
[2017-08-16 23:35] LABS: BG BASE EXCESS 0.2 mmol/L (-2.0-2.0); BG BILEVEL POS AIRWAY PRESSURE 15/5; BG DEOXYHEMOGLOBIN 0.5 % (0.0-5.0); BG FRACTION INSPIRED OXYGEN 100; BG HCO3 ACT 27.1 mmol/L (22.0-26.0); BG METHEMOGLOBIN 0.3 % (0.0-1.5); BG OXYGEN SATURATION 99.5 % (92.0-98.5); BG OXYHEMOGLOBIN 99.2 % (94.0-97.0); BG PCO2 54.6 mmHg (35.0-45.0); BG PH 7.314 (7.350-7.450); BG SAMPLE SITE LEFT RADIAL; BG TOTAL HEMOGLOBIN 11.1 g/dL (12.0-18.0); BG VENT MODE MASK - BIPAP; BG VENT RATE 16 set
[2017-08-17] VITALS (7 sets, daily range): BP systolic 109–186; BP diastolic 46–98
[2017-08-17] MEDS: FAMOTIDINE 20MG/2ML VIAL IV SCH (08:52)
[2017-08-17] MEDS: FOLIC ACID/VITAMIN B COMP W-C TABLET PO SCH (08:52)
[2017-08-17] MEDS: SEVELAMER CARBONATE 800 MG TABLET PO SCH ×3 (08:52→17:50)
[2017-08-17] MEDS: ASPIRIN 325MG EC TABLET PO SCH (09:00)
[2017-08-17] MEDS ORDERED: LISINOPRIL 20MG TABLET PO SCH (09:00)
[2017-08-17] MEDS: ENOXAPARIN 30MG/0.3ML SYR SUBCUT SCH (09:00)
[2017-08-17] MEDS: NIFEDIPINE XL 90MG TAB PO SCH (12:28)
[2017-08-17] MEDS: MINOXIDIL 2.5MG TABLET PO SCH ×2 (14:01→22:06)
[2017-08-17] MEDS: BENAZEPRIL 20MG TABLET PO SCH (15:38)
[2017-08-17] MEDS: LABETALOL HCL 300MG TABLET PO SCH ×2 (15:40→22:08)
[2017-08-18 04:00] VITALS: BP 100/47
[2017-08-18 06:15] LABS: BASOPHILS % 0.5 % (0.0-2.0); EOSINOPHILS % 1.3 % (0.0-5.0); HEMATOCRIT. 25.2 % (42.0-52.0); HEMOGLOBIN. 8.3 g/dL (14.0-18.0); LYMPHOCYTES % 9.3 % (20.0-50.0); MEAN CORPUSCULAR HEMOGLOBIN 27.4 pg (28.0-32.0); MEAN CORPUSCULAR VOLUME 83.5 fL (80.0-94.0); MEAN PLATELET VOLUME 8.8 fl (7.4-10.4); MONOCYTES % 9.5 % (2.0-8.0); NEUTROPHILS % 79.4 % (40.0-76.0); PLATELET 139 x1000/uL (130-400); RED BLOOD CELL COUNT 3.01 mill/uL (4.7-6.1); RED CELL DISTRIBUTION WIDTH 18.2 % (11.6-14.6)
[2017-08-18 07:47] VITALS: BP 97/44
[2017-08-18] MEDS: SEVELAMER CARBONATE 800 MG TABLET PO SCH ×2 (08:19→13:44)
[2017-08-18] MEDS: FOLIC ACID/VITAMIN B COMP W-C TABLET PO SCH (08:21)
[2017-08-18] MEDS: FAMOTIDINE 20MG/2ML VIAL IV SCH (08:27)
[2017-08-18] MEDS: MINOXIDIL 2.5MG TABLET PO SCH (09:00)
[2017-08-18] MEDS: LABETALOL HCL 300MG TABLET PO SCH (09:00)
[2017-08-18] MEDS: NIFEDIPINE XL 90MG TAB PO SCH (09:00)
[2017-08-18] MEDS: ENOXAPARIN 30MG/0.3ML SYR SUBCUT SCH (09:00)
[2017-08-18] MEDS ORDERED: LEVOFLOXACIN 250MG PREMIX 50 ML IV SCH (09:00)
[2017-08-18] MEDS: ASPIRIN 325MG EC TABLET PO SCH (09:00)
[2017-08-18] MEDS: BENAZEPRIL 20MG TABLET PO SCH (09:00)
[2017-08-18 11:37] VITALS: BP 107/51
[2017-08-18 12:28] VITALS: BP 107/51
[2017-08-18 15:48] VITALS: BP 107/47
== END 2017-08-18 17:40 | disposition home or self-care (01) | DRG 199 ==
LOC: ER 20:23 → 6WST 21:25 → EDBEDREQ 21:38 → CANRESERV 23:14 → ENRESERV 23:14
PROVIDERS: ADMIT Internal Medicine; ATTEND Internal Medicine
PROC: 5A09457 Assistance with Respiratory Ventilation, 24-96 Consecutive Hours, Continuous Positive Airway Pressure (ICD-10-PCS; principal; 2017-08-16)
PROC: 5A1D70Z Performance of Urinary Filtration, Intermittent, Less than 6 Hours Per Day (ICD-10-PCS; 2017-08-17)
DX: I16.9 Hypertensive crisis, unspecified (principal); J96.00 Acute respiratory failure, unspecified whether with hypoxia or hypercapnia; I50.33 Acute on chronic diastolic (congestive) heart failure; J18.9 Pneumonia, unspecified organism; N18.6 End stage renal disease; I50.32 Chronic diastolic (congestive) heart failure; I13.2 Hypertensive heart and chronic kidney disease with heart failure and with stage 5 chronic kidney disease, or end stage renal disease; D35.00 Benign neoplasm of unspecified adrenal gland; D63.8 Anemia in other chronic diseases classified elsewhere; Z91.14 Patient's other noncompliance with medication regimen; Z88.8 Allergy status to other drugs, medicaments and biological substances; Z99.2 Dependence on renal dialysis; Z79.899 Other long term (current) drug therapy
CPT/HCPCS: 36415; 36600; 71010; 80048; 80053; 82375; 82805; 83605; 83690; 84484; 85025; 87040; 93005; 94660; G0482; J0360; J1650; J1956; J3490; J7030; J7040; J7620

== ENCOUNTER 2018-09-13 03:41 | Inpatient (IN) | payer MEDICAID ==
[~2018-09-13] VITALS: Ht 162.6 cm; Wt 57.7 kg
[~2018-09-13 03:41] MED LIST changes: -BENA40TA3 PO; +BENA40TA9 PO; +CLON0.1T PO; -LEVO250T2 PO; -METR250T PO; +MINO2.5T19 MT; -MINO2.5T19 PO
[2018-09-13] MEDS ORDERED: ONDANSETRON HCL 4MG/2ML INJ IV STA (04:18)
[2018-09-13 04:27] LABS: HEMATOCRIT. 34.5 % (42.0-52.0); HEMOGLOBIN. 11.6 g/dL (14.0-18.0); MEAN CORPUSCULAR HEMOGLOBIN 28.9 pg (28.0-32.0); MEAN CORPUSCULAR VOLUME 85.9 fL (80.0-94.0); MEAN PLATELET VOLUME 8.2 fl (7.4-10.4); PLATELET 89 x1000/uL (130-400); RED BLOOD CELL COUNT 4.01 mill/uL (4.7-6.1); RED CELL DISTRIBUTION WIDTH 16.1 % (11.6-14.6)
[2018-09-13 04:36] LABS: CHLORIDE 101 mEq/L (98-107)
[2018-09-13] MEDS ORDERED: PIPERACILLIN/TAZ 3.375G PREMIX 50 ML IV ONE (05:30)
[2018-09-13] MEDS ORDERED: VANCOMYCIN 1 G PREMIX 200 ML IV ONE (05:30)
[2018-09-13 07:12] LABS: PLATELET ESTIMATE DECREASED
[2018-09-13] MEDS ORDERED: NITROGLYCERIN 0.4MG TABLET SL SL PRN (12:30)
[2018-09-13] MEDS ORDERED: TRAMADOL 50MG TABLET PO PRN (12:30)
[2018-09-13] MEDS ORDERED: CLONIDINE 0.1MG TABLET PO PRN (12:30)
[2018-09-13] MEDS ORDERED: GUAIFENESIN 200MG/10ML SUGAR FREE UDC PO PRN (12:30)
[2018-09-13] MEDS ORDERED: DIPHENHYDRAMINE 50MG/ML VIAL IV PRN (12:30)
[2018-09-13] MEDS ORDERED: ENOXAPARIN 30MG/0.3ML SYR SUBCUT SCH (12:30)
[2018-09-13] MEDS ORDERED: ZOLPIDEM TARTRATE 5MG TABLET PO PRN (12:30)
[2018-09-13] MEDS ORDERED: LORAZEPAM 1MG TABLET PO PRN (12:30)
[2018-09-13] MEDS ORDERED: IPRATROPIUM/ALBUTEROL 0.5-3(2.5)MG/3ML NEB INH PRN (12:30)
[2018-09-13] MEDS ORDERED: DOCUSATE SODIUM 100MG CAPSULE PO PRN (12:30)
[2018-09-13] MEDS ORDERED: ACETAMINOPHEN 325MG TABLET PO PRN (12:30)
[2018-09-13] MEDS ORDERED: ONDANSETRON HCL 4MG/2ML INJ IV PRN (12:30)
[2018-09-13] MEDS ORDERED: MAGNESIUM/ALUMINUM HYDROXIDE/SIMETHICONE 30ML UDC PO PRN (12:30)
[2018-09-13 12:51] VITALS: BP 186/69
[2018-09-13 13:25] VITALS: BP 186/72
[2018-09-13] MEDS: GUAIFENESIN/DM 600MG/30MG ER TAB 12HR PO SCH (13:26)
[2018-09-13] MEDS: NIFEDIPINE XL 60MG TAB PO SCH (13:26)
[2018-09-13] MEDS: FAMOTIDINE 20MG TABLET PO SCH (13:26)
[2018-09-13] MEDS: MINOXIDIL 2.5MG TABLET PO SCH ×2 (13:27→21:34)
[2018-09-13] MEDS: SEVELAMER CARBONATE 800 MG TABLET PO SCH (13:28)
[2018-09-13] MEDS ORDERED: AZITHROMYCIN 500 MG in DEXT 5% WATER 250 ML IV SCH (15:00)
[2018-09-13 16:00] VITALS: BP 128/56
[2018-09-13 16:43] LABS: CREATINE KINASE 133 IU/L (39-308)
[2018-09-13 16:44] LABS: CREATINE KINASE MB FRACTION 1.7 ng/mL (0.5-3.6)
[2018-09-13] MEDS ORDERED: DEXTROSE 50% WATER 50ML SYRINGE IV PRN (18:45)
[2018-09-13 20:00] VITALS: BP 138/62
[2018-09-13] MEDS ORDERED: CEFTRIAXONE 1 G PREMIX 50 ML IV NR (20:00)
[2018-09-13] MEDS: INSULIN LISPRO 100 UNITS/ML SUBCUT SCH (21:00)
[2018-09-13] MEDS: BLOOD SUGAR DIAGNOSTIC STRIP TEST SCH (21:38)
[2018-09-14] VITALS: BP 153/58
[2018-09-14 00:05] LABS: CREATINE KINASE 137 IU/L (39-308)
[2018-09-14 04:00] VITALS: BP 200/79
[2018-09-14] MEDS: GUAIFENESIN/DM 600MG/30MG ER TAB 12HR PO SCH (05:48)
[2018-09-14] MEDS: BLOOD SUGAR DIAGNOSTIC STRIP TEST SCH ×2 (06:01→12:40)
[2018-09-14 06:31] LABS: BASOPHILS % 1.1 % (0.0-2.0); EOSINOPHILS % 3.3 % (0.0-5.0); LYMPHOCYTES % 8.5 % (20.0-50.0); MEAN CORPUSCULAR HEMOGLOBIN 28.7 pg (28.0-32.0); MEAN CORPUSCULAR VOLUME 86.2 fL (80.0-94.0); MONOCYTES % 8.1 % (2.0-8.0); PLATELET 77 x1000/uL (130-400); RED BLOOD CELL COUNT 3.13 mill/uL (4.7-6.1)
[2018-09-14 07:20] VITALS: BP 156/70
[2018-09-14 08:00] VITALS: BP 167/64
[2018-09-14] MEDS: INSULIN LISPRO 100 UNITS/ML SUBCUT SCH ×2 (08:10→13:10)
[2018-09-14] MEDS ORDERED: ASPIRIN 325MG EC TABLET PO SCH (09:00)
[2018-09-14] MEDS ORDERED: FOLIC ACID/VITAMIN B COMP W-C TABLET PO SCH (09:00)
[2018-09-14] MEDS: SEVELAMER CARBONATE 800 MG TABLET PO SCH ×2 (09:23→14:23)
[2018-09-14] MEDS: FAMOTIDINE 20MG TABLET PO SCH (09:24)
[2018-09-14] MEDS: MINOXIDIL 2.5MG TABLET PO SCH (09:24)
[2018-09-14] MEDS: NIFEDIPINE XL 60MG TAB PO SCH (09:24)
[2018-09-14 12:00] VITALS: BP 107/56
[2018-09-14] MEDS ORDERED: CEFTRIAXONE 1 G PREMIX 50 ML IV SCH (14:00)
[2018-09-14 14:12] VITALS: BP 107/56
== END 2018-09-14 15:47 | disposition home or self-care (01) | DRG 139 ==
LOC: ER 03:41 → 7WST 05:43 → EDBEDREQTM 05:48 → EDBEDREQ 05:48 → ENRESERV 11:50
PROVIDERS: ADMIT Internal Medicine; ATTEND Internal Medicine
DX: J18.9 Pneumonia, unspecified organism (principal); I13.2 Hypertensive heart and chronic kidney disease with heart failure and with stage 5 chronic kidney disease, or end stage renal disease; E11.22 Type 2 diabetes mellitus with diabetic chronic kidney disease; N18.6 End stage renal disease; D64.9 Anemia, unspecified; I50.33 Acute on chronic diastolic (congestive) heart failure; E78.00 Pure hypercholesterolemia, unspecified; E78.5 Hyperlipidemia, unspecified; Z99.2 Dependence on renal dialysis; Z88.9 Allergy status to unspecified drugs, medicaments and biological substances
CPT/HCPCS: 36415; 71045; 76705; 80048; 82550; 82553; 82962; 83036; 83605; 84145; 84484; 93005; 93970; 96365; 96368; 96375; 99291; J0456; J0696; J2405; J2543; J3370; J7040; J7060

== ENCOUNTER 2018-09-14 18:57 | Inpatient (IN) | payer MEDICAID ==
[~2018-09-14] VITALS: Ht 170.2 cm; Wt 59.4 kg
[2018-09-14] MEDS ORDERED: ONDANSETRON HCL 4MG/2ML INJ IV STA (19:34)
[2018-09-14 20:23] LABS: HEMATOCRIT. 30.3 % (42.0-52.0); MEAN CORPUSCULAR HEMOGLOBIN 28.5 pg (28.0-32.0); MEAN CORPUSCULAR VOLUME 86.1 fL (80.0-94.0); MEAN PLATELET VOLUME 8.3 fl (7.4-10.4); PLATELET 89 x1000/uL (130-400); RED BLOOD CELL COUNT 3.52 mill/uL (4.7-6.1)
[2018-09-14 20:24] LABS: CHLORIDE 101 mEq/L (98-107)
[2018-09-14 21:40] LABS: PLATELET ESTIMATE DECREASED
[2018-09-14] MEDS ORDERED: PIPERACILLIN/TAZ 3.375G PREMIX 50 ML IV ONE (23:15)
[2018-09-14] MEDS ORDERED: VANCOMYCIN 1 G PREMIX 200 ML IV SCH (23:15)
[2018-09-15] MEDS ORDERED: MORPHINE SULFATE 10MG/5ML ORAL SOLN UDC PO PRN (00:45)
[2018-09-15] MEDS ORDERED: LORAZEPAM 2MG/ML CPJ IV PRN (00:45)
[2018-09-15] MEDS ORDERED: HYDROCODONE/ACETAMINOPHEN 5/325MG TABLET PO PRN (00:45)
[2018-09-15] MEDS ORDERED: MAGNESIUM/ALUMINUM HYDROXIDE/SIMETHICONE 30ML UDC PO PRN (00:45)
[2018-09-15] MEDS ORDERED: ONDANSETRON HCL 4MG/2ML INJ IV PRN (00:45)
[2018-09-15] MEDS ORDERED: GUAIFENESIN 200MG/10ML SUGAR FREE UDC PO PRN (00:45)
[2018-09-15] MEDS ORDERED: ACETAMINOPHEN 325MG TABLET PO PRN (00:45)
[2018-09-15] MEDS ORDERED: NA PHOS,M-B/NA PHOS,DI-BA ENEMA 118ML PR PRN (00:45)
[2018-09-15] MEDS ORDERED: IPRATROPIUM/ALBUTEROL 0.5-3(2.5)MG/3ML NEB INH PRN (00:45)
[2018-09-15] MEDS ORDERED: DIPHENHYDRAMINE 50MG/ML VIAL IV PRN (00:45)
[2018-09-15 03:13] VITALS: BP 145/61
[2018-09-15 04:00] VITALS: BP 145/56
[2018-09-15 08:57] VITALS: BP 161/62
[2018-09-15] MEDS: CLONIDINE 0.1MG TABLET PO PRN (09:36)
[2018-09-15] MEDS: ASPIRIN 81MG EC TABLET PO SCH (09:36)
[2018-09-15 12:42] VITALS: BP 116/87
[2018-09-15] MEDS: NIFEDIPINE XL 90MG TAB PO SCH (13:06)
[2018-09-15] MEDS: CLONIDINE 0.1MG TABLET PO SCH ×2 (14:00→20:25)
[2018-09-15 16:35] VITALS: BP 152/65
[2018-09-15] MEDS: DOCUSATE SODIUM 100MG CAPSULE PO PRN (17:37)
[2018-09-15 20:00] VITALS: BP 165/75
[2018-09-15] MEDS: MINOXIDIL 2.5MG TABLET PO SCH (23:44)
[2018-09-16] VITALS: BP 132/63
[2018-09-16 04:00] VITALS: BP 162/68
[2018-09-16] MEDS: CLONIDINE 0.1MG TABLET PO SCH ×3 (07:14→21:09)
[2018-09-16 07:43] LABS: BASOPHILS % 1.3 % (0.0-2.0); EOSINOPHILS % 4.9 % (0.0-5.0); HEMATOCRIT. 26.4 % (42.0-52.0); HEMOGLOBIN. 8.9 g/dL (14.0-18.0); LYMPHOCYTES % 9.2 % (20.0-50.0); MEAN CORPUSCULAR HEMOGLOBIN 28.7 pg (28.0-32.0); MEAN CORPUSCULAR VOLUME 85.4 fL (80.0-94.0); MEAN PLATELET VOLUME 8.8 fl (7.4-10.4); MONOCYTES % 7.4 % (2.0-8.0); NEUTROPHILS % 77.2 % (40.0-76.0); PLATELET 108 x1000/uL (130-400); RED BLOOD CELL COUNT 3.09 mill/uL (4.7-6.1); RED CELL DISTRIBUTION WIDTH 15.5 % (11.6-14.6)
[2018-09-16 08:00] VITALS: BP 156/78
[2018-09-16 08:07] LABS: CHLORIDE 103 mEq/L (98-107)
[2018-09-16 08:20] LABS: HDL CHOLESTEROL 56 mg/dL (40-59)
[2018-09-16 08:21] LABS: T4 FREE 1.05 ng/dL (0.76-1.46)
[2018-09-16 08:25] LABS: LDL CHOLESTEROL 39 mg/dL (5-100)
[2018-09-16] MEDS: NIFEDIPINE XL 90MG TAB PO SCH (09:41)
[2018-09-16] MEDS: ASPIRIN 81MG EC TABLET PO SCH (09:41)
[2018-09-16] MEDS: DOCUSATE SODIUM 100MG CAPSULE PO PRN (09:41)
[2018-09-16] MEDS: MINOXIDIL 2.5MG TABLET PO SCH ×2 (09:42→21:09)
[2018-09-16 14:08] VITALS: BP 171/71
[2018-09-16] MEDS ORDERED: VANCOMYCIN 1500MG in DEXTROSE 5% WATER 250ML IV NR (16:00)
[2018-09-16 20:00] VITALS: BP 159/64
[2018-09-16] MEDS: NIFEDIPINE XL 60MG TAB PO SCH (21:09)
[2018-09-17] VITALS: BP 151/64
[2018-09-17 04:37] VITALS: BP 156/69
[2018-09-17] MEDS: CLONIDINE 0.1MG TABLET PO SCH ×3 (05:46→21:33)
[2018-09-17 08:04] VITALS: BP 180/68
[2018-09-17] MEDS: NIFEDIPINE XL 60MG TAB PO SCH ×2 (08:29→21:33)
[2018-09-17] MEDS: ASPIRIN 81MG EC TABLET PO SCH (08:29)
[2018-09-17] MEDS: MINOXIDIL 2.5MG TABLET PO SCH ×2 (08:36→21:32)
[2018-09-17 12:10] VITALS: BP 146/57
[2018-09-17 15:59] VITALS: BP 150/60
[2018-09-17 20:00] VITALS: BP 163/59
[2018-09-17] MEDS: LISINOPRIL 10MG TABLET PO SCH (21:33)
[2018-09-17] MEDS: LABETALOL HCL 200MG TABLET PO SCH (21:33)
[2018-09-18] VITALS (7 sets, daily range): BP systolic 122–170; BP diastolic 57–67
[2018-09-18] MEDS: CLONIDINE 0.1MG TABLET PO PRN (00:39)
[2018-09-18] MEDS: CLONIDINE 0.1MG TABLET PO SCH (06:09)
[2018-09-18 07:34] LABS: BASOPHILS % 1.1 % (0.0-2.0); EOSINOPHILS % 5.4 % (0.0-5.0); HEMATOCRIT. 27.1 % (42.0-52.0); MEAN CORPUSCULAR HEMOGLOBIN 28.2 pg (28.0-32.0); MEAN CORPUSCULAR VOLUME 84.8 fL (80.0-94.0); MEAN PLATELET VOLUME 8.3 fl (7.4-10.4); MONOCYTES % 8.4 % (2.0-8.0); NEUTROPHILS % 72.1 % (40.0-76.0); PLATELET 143 x1000/uL (130-400); RED CELL DISTRIBUTION WIDTH 15.4 % (11.6-14.6)
[2018-09-18] MEDS: NIFEDIPINE XL 60MG TAB PO SCH ×2 (08:35→21:00)
[2018-09-18] MEDS: LABETALOL HCL 200MG TABLET PO SCH ×2 (08:35→22:47)
[2018-09-18] MEDS: LISINOPRIL 10MG TABLET PO SCH (08:36)
[2018-09-18] MEDS: ASPIRIN 81MG EC TABLET PO SCH (08:36)
[2018-09-18] MEDS: MINOXIDIL 2.5MG TABLET PO SCH ×2 (08:36→22:46)
[2018-09-18] MEDS: CLONIDINE 0.2MG TABLET PO SCH ×2 (14:29→23:01)
[2018-09-18] MEDS: LISINOPRIL 20MG TABLET PO SCH (21:00)
[2018-09-19 04:00] VITALS: BP 134/79
[2018-09-19 07:04] LABS: BASOPHILS % 1.5 % (0.0-2.0); HEMATOCRIT. 25.8 % (42.0-52.0); HEMOGLOBIN. 8.7 g/dL (14.0-18.0); LYMPHOCYTES % 15.1 % (20.0-50.0); MEAN CORPUSCULAR HEMOGLOBIN 28.5 pg (28.0-32.0); MEAN CORPUSCULAR VOLUME 84.5 fL (80.0-94.0); MEAN PLATELET VOLUME 8.2 fl (7.4-10.4); MONOCYTES % 8.6 % (2.0-8.0); NEUTROPHILS % 68.8 % (40.0-76.0); PLATELET 150 x1000/uL (130-400); RED BLOOD CELL COUNT 3.05 mill/uL (4.7-6.1); RED CELL DISTRIBUTION WIDTH 15.1 % (11.6-14.6)
[2018-09-19 08:00] VITALS: BP 150/56
[2018-09-19] MEDS: NIFEDIPINE XL 60MG TAB PO SCH (09:00)
[2018-09-19] MEDS: ASPIRIN 81MG EC TABLET PO SCH (09:01)
[2018-09-19] MEDS: LISINOPRIL 20MG TABLET PO SCH (09:01)
[2018-09-19] MEDS: MINOXIDIL 2.5MG TABLET PO SCH (09:01)
[2018-09-19] MEDS: LABETALOL HCL 200MG TABLET PO SCH (09:02)
[2018-09-19 12:00] VITALS: BP 150/59
== END 2018-09-19 15:54 | disposition home or self-care (01) | DRG 139 ==
LOC: ER 19:14 → 6WST 23:49 → EDBEDREQ 09-15 00:16 → EDBEDREQTM 09-15 00:16 → ENRESERV 09-15 01:10
PROVIDERS: ADMIT Internal Medicine; ATTEND Internal Medicine
PROC: 5A1D70Z Performance of Urinary Filtration, Intermittent, Less than 6 Hours Per Day (ICD-10-PCS; principal; 2018-09-15)
PROC: 5A1D70Z Performance of Urinary Filtration, Intermittent, Less than 6 Hours Per Day (ICD-10-PCS; 2018-09-17)
DX: J18.9 Pneumonia, unspecified organism (principal); J96.00 Acute respiratory failure, unspecified whether with hypoxia or hypercapnia; I13.2 Hypertensive heart and chronic kidney disease with heart failure and with stage 5 chronic kidney disease, or end stage renal disease; E46 Unspecified protein-calorie malnutrition; E87.5 Hyperkalemia; N18.6 End stage renal disease; I50.32 Chronic diastolic (congestive) heart failure; E87.70 Fluid overload, unspecified; D63.1 Anemia in chronic kidney disease; Z87.442 Personal history of urinary calculi; Z79.899 Other long term (current) drug therapy; Z91.15 Patient's noncompliance with renal dialysis; Z99.2 Dependence on renal dialysis; Z87.01 Personal history of pneumonia (recurrent); Z68.20 Body mass index [BMI] 20.0-20.9, adult; Z82.49 Family history of ischemic heart disease and other diseases of the circulatory system; Z88.8 Allergy status to other drugs, medicaments and biological substances
CPT/HCPCS: 36415; 71045; 71046; 80048; 80061; 80202; 83036; 83605; 83735; 83880; 84439; 84443; 84484; 93005; 93306; 96365; 96375; 99285; J2405; J2543; J3370; J7060; J7620

== ENCOUNTER 2018-12-13 18:00 | Emergency (ER) | payer MEDICAID ==
[~2018-12-13] VITALS: Ht 167.6 cm; Wt 59.0 kg
[2018-12-13] MEDS ORDERED: ONDANSETRON HCL 4MG/2ML INJ IV STA (18:17)
[2018-12-13] MEDS ORDERED: FAMOTIDINE 20MG/2ML VIAL IV STA (18:17)
[2018-12-13 18:39] LABS: BASOPHILS % 0.7 % (0.0-2.0); EOSINOPHILS % 3.5 % (0.0-5.0); HEMATOCRIT. 30.5 % (42.0-52.0); HEMOGLOBIN. 10.2 g/dL (14.0-18.0); LYMPHOCYTES % 9.3 % (20.0-50.0); MEAN CORPUSCULAR HEMOGLOBIN 27.5 pg (28.0-32.0); MEAN CORPUSCULAR VOLUME 82.3 fL (80.0-94.0); MEAN PLATELET VOLUME 8.2 fl (7.4-10.4); MONOCYTES % 8.1 % (2.0-8.0); NEUTROPHILS % 78.4 % (40.0-76.0); PLATELET 127 x1000/uL (130-400); RED BLOOD CELL COUNT 3.71 mill/uL (4.7-6.1); RED CELL DISTRIBUTION WIDTH 16.9 % (11.6-14.6)
[2018-12-13 18:44] LABS: CHLORIDE 96 mEq/L (98-107); INR 1.1; PROTHROMBIN TIME 11.1 sec (9.1-11.1)
[2018-12-13 18:51] LABS: PHOSPHORUS 2.3 mg/dL (2.5-4.9)
[2018-12-13] MEDS ORDERED: BISACODYL 10MG SUPP PR ONE (20:15)
[2018-12-13] MEDS ORDERED: METOCLOPRAMIDE HCL 10MG/2ML VIAL IV ONE (20:15)
[2018-12-13] MEDS ORDERED: CLONIDINE 0.1MG TABLET PO ONE (20:15)
[2018-12-13 21:39] VITALS: BP 210/76
== END 2018-12-13 21:43 | disposition home or self-care (01) ==
LOC: ER 18:00 → CANBEDREQ 12-14 00:38
DX: K80.20 Calculus of gallbladder without cholecystitis without obstruction (principal); D61.818 Other pancytopenia; I12.0 Hypertensive chronic kidney disease with stage 5 chronic kidney disease or end stage renal disease; N18.6 End stage renal disease; Z99.2 Dependence on renal dialysis
CPT/HCPCS: 36415; 71045; 74176; 76705; 80053; 83690; 83735; 84100; 84484; 85025; 85610; 85730; 93005; 96374; 96375; 99284; J2405; J2765; J3490; Z7610

== ENCOUNTER 2019-10-15 22:22 | Emergency (ER) | payer MEDICAID ==
[~2019-10-15] VITALS: Ht 165.1 cm; Wt 62.0 kg
[2019-10-15] MEDS ORDERED: MAGNESIUM/ALUMINUM HYDROXIDE/SIMETHICONE 30ML UDC PO STA (23:58)
[2019-10-16 00:38] LABS: BASOPHILS % 1.2 % (0.0-2.0); EOSINOPHILS % 7.2 % (0.0-5.0); HEMATOCRIT. 32.3 % (42.0-52.0); HEMOGLOBIN. 10.7 g/dL (14.0-18.0); LYMPHOCYTES % 11.9 % (20.0-50.0); MEAN CORPUSCULAR HEMOGLOBIN 27.5 pg (28.0-32.0); MEAN CORPUSCULAR VOLUME 83.2 fL (80.0-94.0); MEAN PLATELET VOLUME 7.8 fl (7.4-10.4); MONOCYTES % 9.1 % (2.0-8.0); NEUTROPHILS % 70.6 % (40.0-76.0); PLATELET 208 x1000/uL (130-400); RED BLOOD CELL COUNT 3.88 mill/uL (4.7-6.1); RED CELL DISTRIBUTION WIDTH 16.3 % (11.6-14.6)
[2019-10-16 00:45] LABS: CHLORIDE 103 mEq/L (98-107)
[2019-10-16 04:23] VITALS: BP 142/55
== END 2019-10-16 04:33 | disposition home or self-care (01) ==
LOC: ER 22:22
DX: N18.9 Chronic kidney disease, unspecified (principal); K59.00 Constipation, unspecified; I10 Essential (primary) hypertension; Z88.8 Allergy status to other drugs, medicaments and biological substances; Z79.899 Other long term (current) drug therapy
CPT/HCPCS: 36415; 74176; 80053; 83605; 83690; 85025; 99284; Z7610

== ENCOUNTER 2020-03-18 08:11 | Inpatient (IN) | payer MEDICAID ==
[~2020-03-18] VITALS: Ht 175.3 cm; Wt 58.5 kg
[2020-03-18 09:51] LABS: BASOPHILS % 1.3 % (0.0-2.0); EOSINOPHILS % 4.8 % (0.0-5.0); HEMATOCRIT. 25.4 % (42.0-52.0); HEMOGLOBIN. 8.6 g/dL (14.0-18.0); LYMPHOCYTES % 7.8 % (20.0-50.0); MEAN CORPUSCULAR HEMOGLOBIN 28.5 pg (28.0-32.0); MEAN CORPUSCULAR VOLUME 84.3 fL (80.0-94.0); MEAN PLATELET VOLUME 8.3 fl (7.4-10.4); MONOCYTES % 5.7 % (2.0-8.0); NEUTROPHILS % 80.4 % (40.0-76.0); PLATELET 185 x1000/uL (130-400); RED BLOOD CELL COUNT 3.01 mill/uL (4.7-6.1); RED CELL DISTRIBUTION WIDTH 17.4 % (11.6-14.6)
[2020-03-18 09:54] LABS: CHLORIDE 104 mEq/L (98-107)
[2020-03-18] MEDS ORDERED: ASPIRIN 325MG EC TABLET PO ONE (10:00)
[2020-03-18] MEDS ORDERED: NITROGLYCERIN OINT 1GM/INCH UDPKT TD ONE (10:00)
[2020-03-18] MEDS ORDERED: ALBUTEROL 6.7GM HFA INHALER ORI ONE (10:00)
[2020-03-18 10:25] LABS: INR 1.1; PROTHROMBIN TIME 11.4 sec (9.6-11.0)
[2020-03-18 12:00] VITALS: BP 162/68
[2020-03-18 12:30] VITALS: BP 146/68
[2020-03-18] MEDS ORDERED: AZITHROMYCIN 500 MG in DEXT 5% WATER 250 ML IV ONE (12:30)
[2020-03-18] MEDS ORDERED: CEFTRIAXONE 1 G PREMIX 50 ML IV ONE (12:30)
[2020-03-18] MEDS ORDERED: AZITHROMYCIN 500 MG in DEXT 5% WATER 250 ML IV SCH (13:45)
[2020-03-18] MEDS ORDERED: HYDRALAZINE 20MG/ML VIAL IV PRN (13:45)
[2020-03-18] MEDS ORDERED: ONDANSETRON HCL 4MG/2ML INJ IV PRN (14:00)
[2020-03-18] MEDS ORDERED: MORPHINE SULFATE 2 MG/ML CPJ (NOT FOR IM USE) IV PRN (14:00)
[2020-03-18] MEDS ORDERED: CLONIDINE 0.1MG TABLET PO PRN (14:00)
[2020-03-18] MEDS ORDERED: MAGNESIUM/ALUMINUM HYDROXIDE/SIMETHICONE 30ML UDC PO PRN (14:00)
[2020-03-18] MEDS ORDERED: HYDROCODONE/ACETAMINOPHEN 5/325MG TABLET PO PRN (14:00)
[2020-03-18] MEDS ORDERED: GUAIFENESIN 200MG/10ML SUGAR FREE UDC PO PRN (14:00)
[2020-03-18] MEDS ORDERED: DIPHENHYDRAMINE 50MG/ML VIAL IV PRN (14:00)
[2020-03-18] MEDS ORDERED: LORAZEPAM 2MG/ML CPJ IV PRN (14:00)
[2020-03-18] MEDS ORDERED: ACETAMINOPHEN 325MG TABLET PO PRN (14:00)
[2020-03-18] MEDS ORDERED: IPRATROPIUM/ALBUTEROL 0.5-3(2.5)MG/3ML NEB NEB PRN (14:00)
[2020-03-18] MEDS ORDERED: NA PHOS,M-B/NA PHOS,DI-BA ENEMA 118ML PR PRN (14:00)
[2020-03-18] MEDS: DEXTROSE 5% WATER 1,000 ML IV SCH (15:00)
[2020-03-18 16:00] VITALS: BP 98/66
[2020-03-18] MEDS: AZITHROMYCIN 500 MG in DEXT 5% WATER 250 ML IV SCH (16:21)
[2020-03-18] MEDS: CEFTRIAXONE 1 G PREMIX 50 ML IV SCH (16:21)
[2020-03-18 16:39] LABS: CHLORIDE 102 mEq/L (98-107)
[2020-03-18 17:24] LABS: BG BASE EXCESS -0.3 mmol/L (-2.0-2.0); BG CARBOXYHEMOGLOBIN 0.3 % (0.5-1.5); BG DEOXYHEMOGLOBIN 2.9 % (0.0-5.0); BG FRACTION INSPIRED OXYGEN 40; BG HCO3 ACT 24.5 mmol/L (22.0-26.0); BG METHEMOGLOBIN 0.1 % (0.0-1.5); BG OXYGEN SATURATION 97.1 % (92.0-98.5); BG OXYHEMOGLOBIN 96.7 % (94.0-97.0); BG PCO2 40.4 mmHg (35.0-45.0); BG PO2 100.6 mmHg (75.0-100.0); BG SAMPLE SITE RIGHT RADIAL; BG VENT MODE NASAL CANNULA
[2020-03-18 20:00] VITALS: BP 111/63
[2020-03-18] MEDS: DOCUSATE SODIUM 100MG CAPSULE PO PRN (20:20)
[2020-03-19] VITALS: BP 139/58
[2020-03-19] MEDS: DOCUSATE SODIUM 100MG CAPSULE PO PRN (03:46)
[2020-03-19 04:00] VITALS: BP 159/67
[2020-03-19 07:54] LABS: BASOPHILS % 0.6 % (0.0-2.0); EOSINOPHILS % 3.7 % (0.0-5.0); HEMATOCRIT. 23.1 % (42.0-52.0); HEMOGLOBIN. 8.3 g/dL (14.0-18.0); LYMPHOCYTES % 7.3 % (20.0-50.0); MEAN CORPUSCULAR VOLUME 83.2 fL (80.0-94.0); MEAN PLATELET VOLUME 8.2 fl (7.4-10.4); MONOCYTES % 6.9 % (2.0-8.0); NEUTROPHILS % 81.5 % (40.0-76.0); PLATELET 170 x1000/uL (130-400); RED BLOOD CELL COUNT 2.77 mill/uL (4.7-6.1); RED CELL DISTRIBUTION WIDTH 17.5 % (11.6-14.6)
[2020-03-19 08:09] VITALS: BP 160/58
[2020-03-19 08:11] LABS: CHLORIDE 100 mEq/L (98-107)
[2020-03-19 08:20] LABS: LDL CHOLESTEROL 54 mg/dL (5-100)
[2020-03-19 08:21] LABS: HDL CHOLESTEROL 52 mg/dL (40-59); T4 FREE 0.98 ng/dL (0.76-1.46)
[2020-03-19] MEDS: GUAIFENESIN 600MG ER TABLET PO SCH ×2 (11:59→20:09)
[2020-03-19 12:07] VITALS: BP 138/53
[2020-03-19] MEDS: ALBUTEROL 6.7GM HFA INHALER ORI SCH ×2 (13:56→17:51)
[2020-03-19] MEDS: DEXTROSE 5% WATER 1,000 ML IV SCH (14:03)
[2020-03-19] MEDS: AZITHROMYCIN 500 MG in DEXT 5% WATER 250 ML IV SCH (15:58)
[2020-03-19] MEDS: CEFTRIAXONE 1 G PREMIX 50 ML IV SCH (16:05)
[2020-03-19 16:14] VITALS: BP 160/57
[2020-03-19 20:00] VITALS: BP 169/68
[2020-03-20] VITALS: BP 152/53
[2020-03-20 04:00] VITALS: BP 186/71
[2020-03-20] MEDS: DOCUSATE SODIUM 100MG CAPSULE PO PRN (04:56)
[2020-03-20 06:22] LABS: BASOPHILS % 0.9 % (0.0-2.0); HEMATOCRIT. 24.3 % (42.0-52.0); HEMOGLOBIN. 8.4 g/dL (14.0-18.0); LYMPHOCYTES % 8.8 % (20.0-50.0); MEAN CORPUSCULAR HEMOGLOBIN 28.6 pg (28.0-32.0); MEAN CORPUSCULAR VOLUME 82.9 fL (80.0-94.0); MEAN PLATELET VOLUME 8.6 fl (7.4-10.4); MONOCYTES % 9.3 % (2.0-8.0); PLATELET 167 x1000/uL (130-400); RED BLOOD CELL COUNT 2.93 mill/uL (4.7-6.1); RED CELL DISTRIBUTION WIDTH 17.3 % (11.6-14.6)
[2020-03-20 08:00] VITALS: BP 176/59
[2020-03-20] MEDS: GUAIFENESIN 600MG ER TABLET PO SCH (09:06)
[2020-03-20 12:00] VITALS: BP 145/62
[2020-03-20] MEDS ORDERED: DOCUSATE SODIUM 250MG CAPSULE PO PRN (12:15)
[2020-03-20] MEDS ORDERED: CEFTRIAXONE 1 G PREMIX 50 ML IV SCH (13:00)
[2020-03-20] MEDS ORDERED: BISACODYL 10MG SUPP PR NR (13:00)
[2020-03-20] MEDS ORDERED: MAGNESIUM HYDROXIDE 400MG/5ML 30ML UDC PO NR (13:00)
[2020-03-20] MEDS ORDERED: AZITHROMYCIN 500 MG in DEXT 5% WATER 250 ML IV SCH (14:00)
[2020-03-20 16:00] VITALS: BP 124/70
[2020-03-20 16:54] VITALS: BP 124/70
[2020-03-20] MEDS ORDERED: EPOETIN ALFA 10000UNITS/ML VIAL SUBCUT SCH (21:00)
== END 2020-03-20 20:10 | disposition home or self-care (01) | DRG 720 ==
LOC: ER 08:23 → ENRESERV 11:28 → ER 12:32 → 7WST 13:36 → 8WST 03-19 22:25
PROVIDERS: ADMIT Internal Medicine; ATTEND Internal Medicine
PROC: 5A1D70Z Performance of Urinary Filtration, Intermittent, Less than 6 Hours Per Day (ICD-10-PCS; principal; 2020-03-18)
PROC: 5A1D70Z Performance of Urinary Filtration, Intermittent, Less than 6 Hours Per Day (ICD-10-PCS; 2020-03-20)
DX: A41.9 Sepsis, unspecified organism (principal); J96.00 Acute respiratory failure, unspecified whether with hypoxia or hypercapnia; I13.2 Hypertensive heart and chronic kidney disease with heart failure and with stage 5 chronic kidney disease, or end stage renal disease; E46 Unspecified protein-calorie malnutrition; J91.8 Pleural effusion in other conditions classified elsewhere; J18.9 Pneumonia, unspecified organism; J44.0 Chronic obstructive pulmonary disease with (acute) lower respiratory infection; K56.7 Ileus, unspecified; I50.9 Heart failure, unspecified; N18.6 End stage renal disease; R18.8 Other ascites; D63.1 Anemia in chronic kidney disease; Z20.828 Contact with and (suspected) exposure to other viral communicable diseases; K56.41 Fecal impaction; K80.20 Calculus of gallbladder without cholecystitis without obstruction; Z68.1 Body mass index [BMI] 19.9 or less, adult; Z88.8 Allergy status to other drugs, medicaments and biological substances; Z99.2 Dependence on renal dialysis; Z87.442 Personal history of urinary calculi; Z90.5 Acquired absence of kidney
CPT/HCPCS: 36415; 36600; 71045; 71250; 74018; 74176; 80048; 80053; 80061; 82375; 82805; 84439; 84443; 84484; 85025; 93005; 99291; J0360; J0456; J0696; J0885; J7060; J7070; U0003-CS

== ENCOUNTER 2020-04-05 10:22 | Inpatient (IN) | payer MEDICAID ==
[~2020-04-05] VITALS: Ht 170.2 cm; Wt 63.5 kg
[2020-04-05] MEDS ORDERED: LABETALOL 5MG/ML SYR 20 MG/4 ML SYRINGE IV ONE (10:45)
[2020-04-05 10:59] LABS: HEMOGLOBIN. 9.1 g/dL (14.0-18.0); MEAN CORPUSCULAR HEMOGLOBIN 29.5 pg (28.0-32.0); MEAN CORPUSCULAR VOLUME 87.9 fL (80.0-94.0); MEAN PLATELET VOLUME 8.4 fl (7.4-10.4); PLATELET 171 x1000/uL (130-400); RED BLOOD CELL COUNT 3.07 mill/uL (4.7-6.1); RED CELL DISTRIBUTION WIDTH 17.2 % (11.6-14.6)
[2020-04-05 11:06] LABS: CHLORIDE 103 mEq/L (98-107)
[2020-04-05 11:12] LABS: PHOSPHORUS 2.6 mg/dL (2.5-4.9)
[2020-04-05] MEDS ORDERED: METHYLPREDNISOLONE SOD SUCC 125 MG/2 ML VIAL IV STA (11:29)
[2020-04-05] MEDS ORDERED: IPRATROPIUM BROMIDE (0.02%) 0.5MG/2.5ML NEB HHN STA (11:29)
[2020-04-05] MEDS ORDERED: ALBUTEROL (0.083%) 2.5MG/3ML NEB HHN STA (11:29)
[2020-04-05] MEDS ORDERED: MAGNESIUM 2 G PREMIX 50 ML IV STA (11:29)
[2020-04-05 11:51] LABS: PLATELET ESTIMATE NORMAL
[2020-04-05] MEDS ORDERED: LEVOFLOXACIN 500MG PREMIX 100 ML IV ONE (12:15)
[2020-04-05] MEDS ORDERED: PIPERACILLIN/TAZ 3.375G PREMIX 50 ML IV ONE (12:15)
[2020-04-05] MEDS ORDERED: ACETAMINOPHEN 325MG TABLET PO PRN ×2 (13:00)
[2020-04-05] MEDS: IPRATROPIUM/ALBUTEROL 0.5-3(2.5)MG/3ML NEB HHN SCH ×2 (13:00→21:18)
[2020-04-05] MEDS ORDERED: MAGNESIUM/ALUMINUM HYDROXIDE/SIMETHICONE 30ML UDC PO PRN (13:00)
[2020-04-05] MEDS ORDERED: LORAZEPAM 0.5MG TABLET PO PRN (13:00)
[2020-04-05] MEDS ORDERED: GUAIFENESIN 200MG/10ML SUGAR FREE UDC PO PRN (13:00)
[2020-04-05] MEDS ORDERED: IPRATROPIUM/ALBUTEROL 0.5-3(2.5)MG/3ML NEB ORI PRN (13:00)
[2020-04-05] MEDS ORDERED: DOCUSATE SODIUM 100MG CAPSULE PO PRN (13:00)
[2020-04-05] MEDS: SEVELAMER CARBONATE 800 MG TABLET PO SCH ×2 (13:00→17:20)
[2020-04-05] MEDS ORDERED: ONDANSETRON HCL 4MG/2ML INJ IV PRN (13:00)
[2020-04-05] MEDS ORDERED: NITROGLYCERIN 0.4MG TABLET SL SL PRN (13:00)
[2020-04-05] MEDS: NIFEDIPINE XL 90MG TAB PO SCH (13:00)
[2020-04-05] MEDS ORDERED: DIPHENHYDRAMINE 50MG/ML VIAL IV PRN (13:00)
[2020-04-05] MEDS ORDERED: ENOXAPARIN 40MG/0.4ML SYR SUBCUT SCH (13:00)
[2020-04-05 15:23] LABS: CREATINE KINASE MB FRACTION 4.5 ng/mL (0.5-3.6)
[2020-04-05 16:58] VITALS: BP 178/75
[2020-04-05 17:01] VITALS: BP 178/75
[2020-04-05] MEDS: ENOXAPARIN 30MG/0.3ML SYR SUBCUT SCH (18:52)
[2020-04-05 19:08] LABS: BG BASE EXCESS -0.3 mmol/L (-2.0-2.0); BG BILEVEL POS AIRWAY PRESSURE 15/5; BG CARBOXYHEMOGLOBIN 0.6 % (0.5-1.5); BG DEOXYHEMOGLOBIN 4.5 % (0.0-5.0); BG FRACTION INSPIRED OXYGEN 40; BG METHEMOGLOBIN 0.3 % (0.0-1.5); BG OXYGEN SATURATION 95.5 % (92.0-98.5); BG OXYHEMOGLOBIN 94.6 % (94.0-97.0); BG PH 7.419 (7.350-7.450); BG PO2 78.6 mmHg (75.0-100.0); BG SAMPLE SITE RIGHT RADIAL; BG TOTAL HEMOGLOBIN 9.6 g/dL (12.0-18.0); BG VENT MODE MASK - BIPAP; BG VENT RATE 16 set
[2020-04-05 20:00] VITALS: BP 180/71
[2020-04-05] MEDS: ASCORBIC ACID 500 MG TABLET PO SCH (20:27)
[2020-04-05] MEDS: FAMOTIDINE 20MG TABLET PO SCH (20:27)
[2020-04-05] MEDS: MINOXIDIL 2.5MG TABLET PO SCH (20:27)
[2020-04-05] MEDS ORDERED: ZOLPIDEM TARTRATE 5MG TABLET PO PRN (21:00)
[2020-04-05] MEDS: BUDESONIDE 0.5MG/2ML NEB HHN SCH (21:18)
[2020-04-05 22:00] VITALS: BP 140/59
[2020-04-05 23:42] LABS: CREATINE KINASE MB FRACTION 3.1 ng/mL (0.5-3.6)
[2020-04-06] VITALS (15 sets, daily range): BP systolic 118–180; BP diastolic 44–80
[2020-04-06] MEDS: IPRATROPIUM/ALBUTEROL 0.5-3(2.5)MG/3ML NEB HHN SCH ×6 (00:35→20:14)
[2020-04-06] MEDS: CLONIDINE 0.1MG TABLET PO PRN (01:30)
[2020-04-06] MEDS: ZINC SULFATE 220 MG ( 50 ) CAPSULE PO SCH (08:59)
[2020-04-06] MEDS: ASCORBIC ACID 500 MG TABLET PO SCH ×2 (08:59→21:05)
[2020-04-06] MEDS: SEVELAMER CARBONATE 800 MG TABLET PO SCH ×3 (08:59→16:34)
[2020-04-06] MEDS: BUDESONIDE 0.5MG/2ML NEB HHN SCH ×2 (09:02→20:13)
[2020-04-06] MEDS: MINOXIDIL 2.5MG TABLET PO SCH ×2 (10:52→21:07)
[2020-04-06] MEDS: NIFEDIPINE XL 90MG TAB PO SCH (10:52)
[2020-04-06] MEDS: ENOXAPARIN 30MG/0.3ML SYR SUBCUT SCH (13:16)
[2020-04-06] MEDS: FAMOTIDINE 20MG TABLET PO SCH (21:07)
[2020-04-07] VITALS (13 sets, daily range): BP systolic 125–186; BP diastolic 54–93
[2020-04-07] MEDS: CLONIDINE 0.1MG TABLET PO PRN ×2 (00:41→11:33)
[2020-04-07] MEDS: IPRATROPIUM/ALBUTEROL 0.5-3(2.5)MG/3ML NEB HHN SCH ×5 (00:50→20:00)
[2020-04-07 07:13] LABS: BASOPHILS % 1.1 % (0.0-2.0); EOSINOPHILS % 4.2 % (0.0-5.0); HEMATOCRIT. 22.9 % (42.0-52.0); HEMOGLOBIN. 7.7 g/dL (14.0-18.0); MEAN CORPUSCULAR HEMOGLOBIN 29.7 pg (28.0-32.0); MEAN CORPUSCULAR VOLUME 88.3 fL (80.0-94.0); MEAN PLATELET VOLUME 8.7 fl (7.4-10.4); MONOCYTES % 6.7 % (2.0-8.0); PLATELET 146 x1000/uL (130-400); RED CELL DISTRIBUTION WIDTH 17.5 % (11.6-14.6)
[2020-04-07] MEDS: SEVELAMER CARBONATE 800 MG TABLET PO SCH ×3 (08:01→18:14)
[2020-04-07] MEDS: ZINC SULFATE 220 MG ( 50 ) CAPSULE PO SCH (08:01)
[2020-04-07] MEDS: ASCORBIC ACID 500 MG TABLET PO SCH ×2 (08:01→20:23)
[2020-04-07] MEDS: NIFEDIPINE XL 90MG TAB PO SCH (08:01)
[2020-04-07] MEDS: MINOXIDIL 2.5MG TABLET PO SCH ×2 (08:01→20:24)
[2020-04-07] MEDS ORDERED: LEVOFLOXACIN 500MG PREMIX 100 ML IV SCH (10:00)
[2020-04-07] MEDS: BUDESONIDE 0.5MG/2ML NEB HHN SCH ×2 (11:00→20:37)
[2020-04-07] MEDS: ENOXAPARIN 30MG/0.3ML SYR SUBCUT SCH (14:05)
[2020-04-07] MEDS: FAMOTIDINE 20MG TABLET PO SCH (20:24)
[2020-04-07] MEDS ORDERED: EPOETIN ALFA 10000UNITS/ML VIAL SUBCUT SCH (21:00)
[2020-04-08] VITALS (8 sets, daily range): BP systolic 150–174; BP diastolic 60–75
[2020-04-08] MEDS: IPRATROPIUM/ALBUTEROL 0.5-3(2.5)MG/3ML NEB HHN SCH ×4 (00:49→12:41)
[2020-04-08] MEDS: NIFEDIPINE XL 90MG TAB PO SCH (07:57)
[2020-04-08] MEDS: ZINC SULFATE 220 MG ( 50 ) CAPSULE PO SCH (07:57)
[2020-04-08] MEDS: SEVELAMER CARBONATE 800 MG TABLET PO SCH (07:57)
[2020-04-08] MEDS: ASCORBIC ACID 500 MG TABLET PO SCH (07:58)
[2020-04-08] MEDS: MINOXIDIL 2.5MG TABLET PO SCH (07:58)
[2020-04-08] MEDS: BUDESONIDE 0.5MG/2ML NEB HHN SCH (09:30)
[2020-04-09] MEDS ORDERED: LEVOFLOXACIN 500MG PREMIX 100 ML IV SCH (11:00)
== END 2020-04-08 13:25 | disposition home or self-care (01) | DRG 133 ==
LOC: ER 10:34 → EDBEDREQ 10:50 → EDBEDREQSVC 11:39 → EDBEDREQTM 11:39 → ENRESERV 13:17 → 3WST 16:26
PROVIDERS: ADMIT Internal Medicine; ATTEND Internal Medicine
PROC: 5A1D70Z Performance of Urinary Filtration, Intermittent, Less than 6 Hours Per Day (ICD-10-PCS; principal; 2020-04-05)
PROC: 5A09357 Assistance with Respiratory Ventilation, Less than 24 Consecutive Hours, Continuous Positive Airway Pressure (ICD-10-PCS; 2020-04-05)
DX: J96.01 Acute respiratory failure with hypoxia (principal); J44.1 Chronic obstructive pulmonary disease with (acute) exacerbation; I16.0 Hypertensive urgency; J44.0 Chronic obstructive pulmonary disease with (acute) lower respiratory infection; D63.8 Anemia in other chronic diseases classified elsewhere; N18.6 End stage renal disease; I13.2 Hypertensive heart and chronic kidney disease with heart failure and with stage 5 chronic kidney disease, or end stage renal disease; I48.91 Unspecified atrial fibrillation; Z20.828 Contact with and (suspected) exposure to other viral communicable diseases; I50.30 Unspecified diastolic (congestive) heart failure; Z87.01 Personal history of pneumonia (recurrent); Z99.2 Dependence on renal dialysis; Z88.8 Allergy status to other drugs, medicaments and biological substances; Z79.899 Other long term (current) drug therapy
CPT/HCPCS: 36415; 36600; 71045; 80048; 80053; 80061; 82375; 82550; 82553; 82805; 83036; 83735; 84100; 84484; 85025; 86850; 86900; 93005; 93970; 94640; 94660; 99291; J0885; J1650; J1956; J2543; J2930; J3475; J7626

== ENCOUNTER 2022-03-03 00:50 | Inpatient (IN) | payer MEDICAID ==
[~2022-03-03] VITALS: Ht 170.2 cm; Wt 56.8 kg
[2022-03-03] VITALS (8 sets, daily range): BP systolic 149–191; BP diastolic 64–89
[~2022-03-03 00:50] MED LIST changes: -BENA40TA9 PO; +BENA40TA91 PO; -LABE200T28 PO; +LABE200T9 PO
[2022-03-03 01:40] LABS: HEMATOCRIT. 31.8 % (42.0-52.0); HEMOGLOBIN. 10.2 g/dL (14.0-18.0); MEAN CORPUSCULAR HEMOGLOBIN 27.5 pg (28.0-32.0); MEAN CORPUSCULAR VOLUME 85.5 fL (80.0-94.0); MEAN PLATELET VOLUME 8.9 fl (7.4-10.4); PLATELET 256 x1000/uL (130-400); RED BLOOD CELL COUNT 3.72 mill/uL (4.7-6.1); RED CELL DISTRIBUTION WIDTH 15.7 % (11.6-14.6)
[2022-03-03 01:47] LABS: CHLORIDE 97 mEq/L (98-107)
[2022-03-03] MEDS ORDERED: VANCOMYCIN 1G PREMIX 200 ML IV ONE (03:00)
[2022-03-03] MEDS ORDERED: PIPERACILLIN/TAZ 3.375G PREMIX 50 ML IV ONE (03:00)
[2022-03-03 03:20] LABS: PLATELET ESTIMATE NORMAL
[2022-03-03 03:43] LABS: BG BASE EXCESS 0.8 mmol/L (-2.0-2.0); BG CARBOXYHEMOGLOBIN 0.8 % (0.5-1.5); BG DEOXYHEMOGLOBIN 7.2 % (0.0-5.0); BG FRACTION INSPIRED OXYGEN 60; BG HCO3 ACT 25.9 mmol/L (22.0-26.0); BG METHEMOGLOBIN 0.1 % (0.0-1.5); BG OXYGEN SATURATION 92.7 % (92.0-98.5); BG OXYHEMOGLOBIN 91.9 % (94.0-97.0); BG PH 7.397 (7.350-7.450); BG PO2 68.4 mmHg (75.0-100.0); BG SAMPLE SITE RIGHT RADIAL; BG TOTAL HEMOGLOBIN 11.5 g/dL (12.0-18.0); BG VENT MODE MASK - BIPAP
[2022-03-03] MEDS ORDERED: VANCOMYCIN 1G PREMIX 200 ML IV NR (04:40)
[2022-03-03] MEDS ORDERED: ACETAMINOPHEN 325MG TABLET PO PRN (07:15)
[2022-03-03] MEDS ORDERED: HYDROCODONE/ACETAMINOPHEN 5/325MG TABLET PO PRN (07:15)
[2022-03-03] MEDS ORDERED: DIPHENHYDRAMINE 50MG/ML VIAL IV PRN (07:15)
[2022-03-03] MEDS ORDERED: GUAIFENESIN 200MG/10ML SUGAR FREE UDC PO PRN (07:15)
[2022-03-03] MEDS ORDERED: IPRATROPIUM/ALBUTEROL 0.5-3(2.5)MG/3ML NEB HHN PRN (07:15)
[2022-03-03] MEDS ORDERED: MORPHINE SULFATE 2 MG/ML CPJ (NOT FOR IM USE) IV PRN (07:15)
[2022-03-03] MEDS ORDERED: MAGNESIUM/ALUMINUM HYDROXIDE/SIMETHICONE 30ML UDC PO PRN (07:15)
[2022-03-03] MEDS ORDERED: ENOXAPARIN 40MG/0.4ML SYR SUBCUT SCH (07:15)
[2022-03-03] MEDS ORDERED: NALOXONE HCL 0.4MG/ML VIAL IV PRN (07:45)
[2022-03-03] MEDS ORDERED: DOCUSATE SODIUM 100MG CAPSULE PO PRN (09:00)
[2022-03-03] MEDS: HYDRALAZINE 20MG/ML VIAL IV PRN (09:03)
[2022-03-03] MEDS: CLONIDINE 0.1MG TABLET PO PRN (11:40)
[2022-03-03] MEDS: ENOXAPARIN 30MG/0.3ML SYR SUBCUT SCH (11:46)
[2022-03-03] MEDS ORDERED: BENAZEPRIL 10MG TABLET PO SCH (13:30)
[2022-03-03] MEDS ORDERED: NIFEDIPINE XL 90MG TAB PO SCH (13:30)
[2022-03-03] MEDS: SODIUM CHLORIDE 0.9% INJ 3ML FLUSH IVF SCH ×2 (14:00→21:20)
[2022-03-03 15:50] LABS: HEPATITIS B SURFACE ANTIGEN NEGATIVE
[2022-03-03] MEDS: IPRATROPIUM/ALBUTEROL 0.5-3(2.5)MG/3ML NEB HHN SCH (21:03)
[2022-03-03] MEDS: LABETALOL HCL 200MG TABLET PO SCH (21:20)
[2022-03-03] MEDS: MINOXIDIL 2.5MG TABLET PO SCH (21:20)
[2022-03-04] VITALS (12 sets, daily range): BP systolic 125–180; BP diastolic 51–90
[2022-03-04] MEDS: LORAZEPAM 2MG/ML CPJ IV PRN ×2 (00:22→08:15)
[2022-03-04] MEDS: CLONIDINE 0.1MG TABLET PO PRN (00:22)
[2022-03-04] MEDS: IPRATROPIUM/ALBUTEROL 0.5-3(2.5)MG/3ML NEB HHN SCH ×2 (01:07→21:33)
[2022-03-04 05:55] LABS: HEMATOCRIT. 27.6 % (42.0-52.0); HEMOGLOBIN. 9.2 g/dL (14.0-18.0); MEAN CORPUSCULAR HEMOGLOBIN 28.2 pg (28.0-32.0); MEAN PLATELET VOLUME 8.7 fl (7.4-10.4); PLATELET 222 x1000/uL (130-400); RED BLOOD CELL COUNT 3.25 mill/uL (4.7-6.1); RED CELL DISTRIBUTION WIDTH 15.7 % (11.6-14.6)
[2022-03-04] MEDS: SODIUM CHLORIDE 0.9% INJ 3ML FLUSH IVF SCH ×3 (06:04→21:52)
[2022-03-04 06:20] LABS: CHLORIDE 101 mEq/L (98-107)
[2022-03-04 08:44] LABS: BG BASE EXCESS 0.9 mmol/L (-2.0-2.0); BG DEOXYHEMOGLOBIN 1.4 % (0.0-5.0); BG HCO3 ACT 24.5 mmol/L (22.0-26.0); BG METHEMOGLOBIN 0.3 % (0.0-1.5); BG OXYGEN SATURATION 98.6 % (92.0-98.5); BG OXYHEMOGLOBIN 98.3 % (94.0-97.0); BG PCO2 34.7 mmHg (35.0-45.0); BG PH 7.466 (7.350-7.450); BG PO2 170.8 mmHg (75.0-100.0); BG SAMPLE SITE RIGHT BRACHIAL; BG TOTAL HEMOGLOBIN 9.7 g/dL (12.0-18.0); BG VENT MODE MASK - BIPAP
[2022-03-04] MEDS: BENAZEPRIL 10MG TABLET PO SCH (08:45)
[2022-03-04] MEDS: LABETALOL HCL 200MG TABLET PO SCH ×2 (08:45→21:52)
[2022-03-04] MEDS: ENOXAPARIN 30MG/0.3ML SYR SUBCUT SCH (08:46)
[2022-03-04] MEDS: NIFEDIPINE XL 90MG TAB PO SCH (08:52)
[2022-03-04] MEDS: MINOXIDIL 2.5MG TABLET PO SCH ×2 (08:58→21:52)
[2022-03-04] MEDS ORDERED: MEDICATION NOT ON FORMULARY EA (Benazepril Hcl 20 MG) PO SCH (09:00)
[2022-03-04] MEDS: DEXTROSE 5% IV SCH (18:10)
[2022-03-04] MEDS: WATER IV SCH (18:10)
[2022-03-04] MEDS: CEFEPIME IV SCH (18:10)
[2022-03-04 21:14] LABS: PLATELET ESTIMATE NORMAL
[2022-03-04 22:44] LABS: HEPATITIS B SURFACE ANTIGEN NEGATIVE
[2022-03-05] VITALS (12 sets, daily range): BP systolic 150–192; BP diastolic 53–85
[2022-03-05] MEDS: HYDRALAZINE 20MG/ML VIAL IV PRN ×2 (00:06→21:35)
[2022-03-05] MEDS: IPRATROPIUM/ALBUTEROL 0.5-3(2.5)MG/3ML NEB HHN SCH ×4 (02:10→20:48)
[2022-03-05] MEDS: SODIUM CHLORIDE 0.9% INJ 3ML FLUSH IVF SCH ×3 (05:47→21:05)
[2022-03-05] MEDS: CEFEPIME IV SCH ×2 (09:18→20:58)
[2022-03-05] MEDS: MINOXIDIL 2.5MG TABLET PO SCH ×2 (09:18→20:57)
[2022-03-05] MEDS: DEXTROSE 5% IV SCH ×2 (09:18→20:58)
[2022-03-05] MEDS: WATER IV SCH ×2 (09:18→20:58)
[2022-03-05] MEDS: NIFEDIPINE XL 90MG TAB PO SCH (09:18)
[2022-03-05] MEDS: ENOXAPARIN 30MG/0.3ML SYR SUBCUT SCH (09:19)
[2022-03-05] MEDS: BENAZEPRIL 10MG TABLET PO SCH (09:19)
[2022-03-05] MEDS: LABETALOL HCL 200MG TABLET PO SCH ×2 (10:46→20:57)
[2022-03-05] MEDS: LORAZEPAM 2MG/ML CPJ IV PRN (18:06)
[2022-03-05] MEDS: CLONIDINE 0.1MG TABLET PO PRN (20:56)
[2022-03-06] VITALS (12 sets, daily range): BP systolic 123–168; BP diastolic 47–66
[2022-03-06 01:08] LABS: HEPATITIS B SURFACE ANTIGEN NEGATIVE
[2022-03-06] MEDS: IPRATROPIUM/ALBUTEROL 0.5-3(2.5)MG/3ML NEB HHN SCH ×4 (01:53→21:34)
[2022-03-06] MEDS: SODIUM CHLORIDE 0.9% INJ 3ML FLUSH IVF SCH ×3 (05:43→22:23)
[2022-03-06 06:19] LABS: HEMATOCRIT. 26.3 % (42.0-52.0); MEAN CORPUSCULAR VOLUME 84.8 fL (80.0-94.0); MEAN PLATELET VOLUME 8.5 fl (7.4-10.4); PLATELET 254 x1000/uL (130-400); RED CELL DISTRIBUTION WIDTH 15.9 % (11.6-14.6)
[2022-03-06] MEDS: NIFEDIPINE XL 90MG TAB PO SCH (08:47)
[2022-03-06] MEDS: MINOXIDIL 2.5MG TABLET PO SCH ×2 (08:47→22:22)
[2022-03-06] MEDS: LABETALOL HCL 200MG TABLET PO SCH ×2 (08:47→22:22)
[2022-03-06] MEDS: BENAZEPRIL 10MG TABLET PO SCH (08:47)
[2022-03-06] MEDS: ENOXAPARIN 30MG/0.3ML SYR SUBCUT SCH (08:48)
[2022-03-06 09:57] LABS: CHLORIDE 108 mEq/L (98-107)
[2022-03-06 10:02] LABS: HEMATOCRIT. 27.3 % (42.0-52.0); MEAN CORPUSCULAR HEMOGLOBIN 28.2 pg (28.0-32.0); MEAN CORPUSCULAR VOLUME 85.7 fL (80.0-94.0); MEAN PLATELET VOLUME 8.4 fl (7.4-10.4); PLATELET 245 x1000/uL (130-400); RED BLOOD CELL COUNT 3.19 mill/uL (4.7-6.1); RED CELL DISTRIBUTION WIDTH 16.2 % (11.6-14.6)
[2022-03-06] MEDS: WATER IV SCH ×2 (12:43→22:21)
[2022-03-06] MEDS: CEFEPIME IV SCH ×2 (12:43→22:21)
[2022-03-06] MEDS: DEXTROSE 5% IV SCH ×2 (12:43→22:21)
[2022-03-06 13:01] LABS: PLATELET ESTIMATE NORMAL
[2022-03-06 19:23] LABS: PLATELET ESTIMATE NORMAL
[2022-03-07] VITALS (12 sets, daily range): BP systolic 115–157; BP diastolic 37–65
[2022-03-07] MEDS: IPRATROPIUM/ALBUTEROL 0.5-3(2.5)MG/3ML NEB HHN SCH ×4 (01:13→20:26)
[2022-03-07] MEDS: ONDANSETRON HCL 4MG/2ML INJ IV PRN ×2 (03:10→14:17)
[2022-03-07] MEDS: SODIUM CHLORIDE 0.9% INJ 3ML FLUSH IVF SCH ×3 (06:23→21:51)
[2022-03-07 06:24] LABS: HEMATOCRIT. 26.3 % (42.0-52.0); HEMOGLOBIN. 8.8 g/dL (14.0-18.0); MEAN CORPUSCULAR HEMOGLOBIN 28.5 pg (28.0-32.0); MEAN CORPUSCULAR VOLUME 85.1 fL (80.0-94.0); MEAN PLATELET VOLUME 8.5 fl (7.4-10.4); PLATELET 251 x1000/uL (130-400); RED BLOOD CELL COUNT 3.09 mill/uL (4.7-6.1); RED CELL DISTRIBUTION WIDTH 15.9 % (11.6-14.6)
[2022-03-07] MEDS: MINOXIDIL 2.5MG TABLET PO SCH ×2 (09:00→21:50)
[2022-03-07] MEDS: LABETALOL HCL 200MG TABLET PO SCH ×2 (09:00→21:49)
[2022-03-07] MEDS: ENOXAPARIN 30MG/0.3ML SYR SUBCUT SCH (09:35)
[2022-03-07 12:24] LABS: HEPATITIS B SURFACE ANTIGEN NEGATIVE
[2022-03-07] MEDS: BENAZEPRIL 10MG TABLET PO SCH (14:16)
[2022-03-07] MEDS: NIFEDIPINE XL 90MG TAB PO SCH (14:17)
[2022-03-07] MEDS ORDERED: CEFEPIME 500 MG in DEXTROSE 5% WATER 50 ML IV SCH (21:00)
[2022-03-07] MEDS ORDERED: EPOETIN ALFA-EPBX 4,000 UNIT/ML VIAL SUBCUT SCH (21:00)
[2022-03-08] VITALS (13 sets, daily range): BP systolic 117–160; BP diastolic 43–77
[2022-03-08] MEDS: IPRATROPIUM/ALBUTEROL 0.5-3(2.5)MG/3ML NEB HHN SCH ×4 (01:09→18:00)
[2022-03-08 04:31] LABS: PLATELET ESTIMATE NORMAL
[2022-03-08] MEDS: SODIUM CHLORIDE 0.9% INJ 3ML FLUSH IVF SCH ×3 (06:05→21:41)
[2022-03-08] MEDS: NIFEDIPINE XL 90MG TAB PO SCH (09:16)
[2022-03-08] MEDS: LABETALOL HCL 200MG TABLET PO SCH ×2 (09:16→21:05)
[2022-03-08] MEDS: BENAZEPRIL 10MG TABLET PO SCH (09:17)
[2022-03-08] MEDS: MINOXIDIL 2.5MG TABLET PO SCH ×2 (09:17→20:59)
[2022-03-08] MEDS: ENOXAPARIN 30MG/0.3ML SYR SUBCUT SCH (09:20)
[2022-03-08] MEDS: ONDANSETRON HCL 4MG/2ML INJ IV PRN (13:03)
[2022-03-08] MEDS ORDERED: CEFEPIME 1,000 MG in DEXTROSE 5% WATER 50 ML IV SCH (21:00)
[2022-03-09] VITALS (8 sets, daily range): BP systolic 114–158; BP diastolic 49–79
[2022-03-09] MEDS: ONDANSETRON HCL 4MG/2ML INJ IV PRN (02:03)
[2022-03-09] MEDS: SODIUM CHLORIDE 0.9% INJ 3ML FLUSH IVF SCH (06:34)
[2022-03-09] MEDS: IPRATROPIUM/ALBUTEROL 0.5-3(2.5)MG/3ML NEB HHN SCH ×2 (08:37)
[2022-03-09] MEDS: NIFEDIPINE XL 90MG TAB PO SCH (09:12)
[2022-03-09] MEDS: BENAZEPRIL 10MG TABLET PO SCH (09:12)
[2022-03-09] MEDS: MINOXIDIL 2.5MG TABLET PO SCH (09:12)
[2022-03-09] MEDS: ENOXAPARIN 30MG/0.3ML SYR SUBCUT SCH (09:13)
[2022-03-09] MEDS: LABETALOL HCL 200MG TABLET PO SCH (09:13)
== END 2022-03-09 12:55 | disposition home or self-care (01) | DRG 720 ==
LOC: ER 00:50 → 5EST 06:08 → EDBEDREQSVC 06:16 → EDBEDREQTM 06:53 → EDBEDREQ 06:53 → ENRESERV 07:17 → 5EST 03-04 04:23
PROVIDERS: ADMIT Internal Medicine; ATTEND Internal Medicine
PROC: 5A09357 Assistance with Respiratory Ventilation, Less than 24 Consecutive Hours, Continuous Positive Airway Pressure (ICD-10-PCS; principal; 2022-03-03)
PROC: 5A1D70Z Performance of Urinary Filtration, Intermittent, Less than 6 Hours Per Day (ICD-10-PCS; 2022-03-03)
PROC: 5A09357 Assistance with Respiratory Ventilation, Less than 24 Consecutive Hours, Continuous Positive Airway Pressure (ICD-10-PCS; 2022-03-04)
PROC: 5A1D70Z Performance of Urinary Filtration, Intermittent, Less than 6 Hours Per Day (ICD-10-PCS; 2022-03-05)
PROC: 5A1D70Z Performance of Urinary Filtration, Intermittent, Less than 6 Hours Per Day (ICD-10-PCS; 2022-03-06)
DX: A41.9 Sepsis, unspecified organism (principal); J96.01 Acute respiratory failure with hypoxia; J69.0 Pneumonitis due to inhalation of food and vomit; G93.40 Encephalopathy, unspecified; E46 Unspecified protein-calorie malnutrition; I13.2 Hypertensive heart and chronic kidney disease with heart failure and with stage 5 chronic kidney disease, or end stage renal disease; R18.8 Other ascites; N18.6 End stage renal disease; J44.0 Chronic obstructive pulmonary disease with (acute) lower respiratory infection; I50.9 Heart failure, unspecified; J90 Pleural effusion, not elsewhere classified; R59.0 Localized enlarged lymph nodes; E87.70 Fluid overload, unspecified; J44.9 Chronic obstructive pulmonary disease, unspecified; E83.52 Hypercalcemia; D64.9 Anemia, unspecified; Z20.822 Contact with and (suspected) exposure to COVID-19; Z99.2 Dependence on renal dialysis; Z79.899 Other long term (current) drug therapy; Z88.8 Allergy status to other drugs, medicaments and biological substances; Z68.1 Body mass index [BMI] 19.9 or less, adult; Z90.5 Acquired absence of kidney; Z94.0 Kidney transplant status
CPT/HCPCS: 36415; 36600; 71045; 80048; 80053; 82375; 82805; 82962; 83605; 84145; 84484; 85025; 86705; 86709; 86803; 87340; 87426; 87804; 94640; 94660; 99291; J0360; J0692; J0885; J1200; J1650; J2060; J2405; J2543; J3370; J7060